=== PATIENT | male | born 1935 | race Caucasian/White ===

== ENCOUNTER → 2016-03-31 | Outpatient (CLI) | payer MEDICARE, BC, OTHER ==
[~2016-03-31] MED LIST: EDOX1TAB5 PO; LEVE250T5 PO; OCUV PO; PRIN10TA PO; PROS5TAB2 PO; SIMV10 PO; TAB-TAB PO
[2016-03-31 13:48] LABS: AUTOMATED NEUTROPHIL # 4.1 TH/MM3 (1.8-7.7); BASOPHIL % 0.5 % (0.0-2.0); EOSINOPHIL # 0.1 TH/MM3 (0-0.4); EOSINOPHIL % 2.6 % (0.0-4.0); HEMATOCRIT 31.4 % (39.0-51.0); HEMO FLAGS DIFF FINAL; LYMPH % 11.6 % (9.0-44.0); LYMPHOCYTE # 0.6 TH/MM3 (1.0-4.8); MEAN CELL VOLUME 87.7 FL (80.0-100.0); MEAN CORPUSCULAR HEMOGLOBIN 30.3 PG (27.0-34.0); MEAN CORPUSCULAR HGB CONC 34.6 % (32.0-36.0); MONO % 7.7 % (0.0-8.0); NEUT % 77.6 % (16.0-70.0); PLATELET COUNT 121 TH/MM3 (150-450); RED BLOOD COUNT 3.58 MIL/MM3 (4.50-5.90); RED CELL DISTRIBUTION WIDTH 14.9 % (11.6-17.2); WHITE BLOOD COUNT 5.3 TH/MM3 (4.0-11.0)
[2016-03-31 13:57] LABS: ANION GAP 8 MEQ/L (5-15); AST (GOT) 18 U/L (15-37); BICARBONATE 26.2 MEQ/L (21.0-32.0); BLOOD UREA NITROGEN 27 MG/DL (7-18); CHLORIDE 107 MEQ/L (98-107); POTASSIUM 3.9 MEQ/L (3.5-5.1); SODIUM (NA) 141 MEQ/L (136-145)
[2016-03-31 14:13] LABS: ALKALINE PHOSPHATASE 71 U/L (45-117); ALT (GPT) 18 U/L (12-78); GLOMERULAR FILTRATION RATE 53 ML/MIN (>89); GLUCOSE,FASTING 107 MG/DL (74-99); TOTAL BILIRUBIN ADULT 0.9 MG/DL (0.2-1.0)
== END ==
LOC: PLAB 09:27
PROVIDERS: ATTEND Family Medicine
DX: K92.2 Gastrointestinal hemorrhage, unspecified (principal)
CPT/HCPCS: 36415; 80053; 84443; 85025

== ENCOUNTER 2016-10-04 15:10 | Inpatient (IN) | payer MEDICARE, BC, OTHER ==
[2016-10-04] VITALS (17 sets, daily range): BP systolic 57–145; BP diastolic 35–98; PULSE 86–114; RESP 14–25; TEMP 97.2–98.7; O2SAT 95–100
[2016-10-04 15:59] LABS: APTT (PATIENT) 34.4 SEC (24.3-30.1); INTERNATIONAL NORMALIZED RATIO 1.2 RATIO; PROTHROMBIN TIME - PATIENT 13.4 SEC (9.8-11.6)
--- NOTE | 2016-10-04 16:15 | PD ---
HPI Chief Complaint: Code Blue Time Seen by Provider: 15:22 Travel History International Travel<30 days: No Contact w/Intl Traveler<30days: No Traveled to known affect area: No History of Present Illness HPI 81yo M with PMH of sinus cancer s/p radiation therapy, CVA presents to the ED s/ p PEA arrest. Pt's heard a sound in the bathroom and found pt on the bathroom floor unresponsive. Pt called [facility] and when they arrived pt was pulseless in PEA arrest and ACLS was started. ROSC was obtained after 1 epinephrine. Pt was intubated in the field by [facility]. No signs of trauma on the patient. He was hypotensive even after 1 liter of NS IVF. I ordered another 2 liters of NS IVF and started pt on epinephrine drip. Pt has a port in right chest for possible chemo. Dr. Mckenzie Chavarria is his oncologist. PFSH Past Medical History Hx Anticoagulant Therapy: Yes (SAVAYSA) Cancer: Yes (PROSTATE (CHEMO), MELANOMA (FACE)) Cardiovascular Problems: Yes (MS) Chemotherapy: Yes (prostate, skin melanoma) Cerebrovascular Accident: Yes Diabetes: Yes (BORDERLINE) Patient Takes Glucophage: No (unknown) Diminished Hearing: No Endocrine: Yes Genitourinary: No Hepatitis: No Hiatal Hernia: No Hypertension: Yes Immune Disorder: No Musculoskeletal: No Neurologic: Yes (STROKE (02/17/15)) Psychiatric: No Reproductive: No Respiratory: Yes (SLEEP APNEA/ NO CPAP) Myocardial Infarction: Yes (1995) Radiation Therapy: Yes (SEEDS; finished in february) Sickle Cell Disease: Yes Thyroid Disease: No Past Surgical History Abdominal Surgery: Yes (cholecystectomy) AICD: No Cardiac Surgery: No Cholecystectomy: Yes Ear Surgery: No Endocrine Surgery: No Eye Surgery: Yes (MELIA. CATARACT EXTRACT) Genitourinary Surgery: Yes (TURP) Gynecologic Surgery: No Joint Replacement: No Oral Surgery: No Pacemaker: No Thoracic Surgery: No Other Surgery: Yes (MELANOMA REMOVED FROM FACE) Social History Alcohol Use: Yes (RARELY) Tobacco Use: No Substance Use: No Allergies-Medications (Allergen,Severity, Reaction): Coded Allergies: Penicillin (Verified Allergy, Severe, TONGUE SWELLING, GENERALIZED HIVES, 10/04/16) Reported Meds & Prescriptions Reported Meds & Active Scripts Active Active Prescriptions or Reported Medications Unobtainable Review of Systems ROS Limitations: Unresponsive Physical Exam Narrative GENERAL: 81yo M unresponsive. SKIN: Focused skin assessment warm/dry. HEAD: Atraumatic. Normocephalic. EYES: Pupils equal and round at 3mm and reactive to light bilaterally. No scleral icterus. No injection or drainage. ENT: No nasal bleeding or discharge. Mucous membranes pink and moist. NECK: Trachea midline. No JVD. CARDIOVASCULAR: Regular rate and rhythm. No murmur appreciated. RESPIRATORY: Intubated. GASTROINTESTINAL: Abdomen soft, +Mass palpated in right abdomen. MUSCULOSKELETAL: No obvious deformities. No clubbing. No cyanosis. No edema. NEUROLOGICAL: Unresponsive. Data Data Last Documented VS Vital Signs Date Time Temp Pulse Resp B/P Pulse Ox O2 Delivery O2 Flow Rate FiO2 10/04/16 17:11 112 86/52 100 10/04/16 17:04 50 10/04/16 16:23 Ventilator 10/04/16 15:58 25 10/04/16 15:23 97.2 Orders Chest, Single Ap (10/04/16 ) Complete Blood Count With Diff (10/04/16 15:22) Basic Metabolic Panel (Bmp) (10/04/16 15:22) Prothrombin Time / Inr (Pt) (10/04/16 15:22) Act Partial Throm Time (Ptt) (10/04/16 15:22) Troponin I (10/04/16 15:22) Ckmb (Isoenzyme) Profile (10/04/16 15:22) Type And Screen (10/04/16 15:22) Lactic Acid Sepsis Protocol (10/04/16 15:22) Blood Culture (10/04/16 15:22) B-Type Natriuretic Peptide (10/04/16 15:22) Epinephrine (1:1000) Inj (Adrenalin (1:1 (10/04/16 17:30) Ct Brain W/O Iv Contrast(Rout) (10/04/16 ) Ed Poc Ultrasound (10/04/16 ) Norepinephrine-Dextrose Drip (Levophed-D (10/04/16 16:30) Terbutaline Inj (Brethine Inj) (10/04/16 16:30) Electrocardiogram (10/04/16 15:18) Urinalysis - C+S If Indicated (10/04/16 16:36) Ct Thorax/ Chest Wo Iv Contras (10/04/16 ) Ct Abd/Pel W/O Iv Contrast (10/04/16 ) Phenylephrine Inj (Neosynephrine Inj) (10/04/16 17:45) Terbutaline Inj (Brethine Inj) (10/04/16 16:45) Admit To Inpatient (10/04/16 ) Code Status (10/04/16 16:41) Vital Signs (Adult) JOHANNY.Q1H (10/04/16 16:41) Activity Bed Rest (10/04/16 16:41) Elevate Head Of Bed (10/04/16 16:41) Neuro Checks . ORDERED (10/04/16 16:41) Pantoprazole Inj (Protonix Inj) (10/04/16 17:00) Albuterol-Ipratropium Neb (Duoneb Neb) (10/04/16 20:00) Complete Blood Count With Diff (10/05/16 04:00) Comprehensive Metabolic Panel (10/05/16 04:00) Consult Cardiology (10/04/16 ) Consult Nephrology (10/04/16 ) Foundry Superintendant / Telemetry JOHANNY.Q8H (10/04/16 16:41) Scd Bilateral/Knee High JOHANNY.BID (10/04/16 16:41) ^ Initiate Protocol (10/04/16 16:41) Instruction (10/04/16 16:41) [facility] Nursing Information (10/04/16 16:45) Chlorhexidine 2% Cloth (Chlorhexidine 2% (10/05/16 04:00) Chlorhexidine 2% Cloth (Chlorhexidine 2% (10/04/16 16:45) Mrsa Pcr Surveillance (10/04/16 16:41) Docusate Sodium-Senna (Nena-Colace) (10/04/16 21:00) Magnesium Hydroxide Liq (Milk Of Magnesi (10/04/16 16:45) Sennosides (Senokot) (10/04/16 16:45) Bisacodyl Supp (Dulcolax Supp) (10/04/16 16:45) Lactulose Liq (Lactulose Liq) (10/04/16 16:45) Inpatient Certification (10/04/16 ) Arterial Blood Gas (Abg) (10/04/16 16:33) Lactic Acid (10/04/16 21:00) Troponin I (10/04/16 21:00) Blood Glucose Goal (Criteria) (10/04/16 16:44) Hypoglycemia 70 Mg/Dl Or < (10/04/16 16:44) Notify Dr: Other (10/04/16 16:44) Dextrose 50% In Ferny (Vial) Inj (D50w (Vi (10/04/16 16:45) Glucagon Inj (Glucagon Inj) (10/04/16 16:45) Insulin Human Reg Supp Scale (Novolin R (10/04/16 17:00) Hydrocortisone Inj (Solucortef Inj) (10/04/16 17:00) Water Sterile For I... W/Sodium Bicarbon (10/04/16 18:00) Neurological Rass Scale Q30MX2,Q2HX4,Q4H (10/04/16 16:48) Fentanyl Drip (Fentanyl Drip) (10/04/16 17:00) Neurological Rass Scale JOHANNY.Q2H.E (10/04/16 16:49) Elevate Head Of Bed (10/04/16 16:49) Chlorhexidine 0.12% Liq (Peridex 0.12% L (10/04/16 20:00) Ventilator Weaning Readiness JOHANNY.DAILY@0800 (10/04/16 16:49) Sodium Bicarbonate 8.4% Inj (Sodium Bica (10/04/16 17:00) Sodium Chlor 0.9% 1000 Ml Inj (Ns 1000 M (10/04/16 17:00) (Hub Use Only)Inp Phy Cons/Ref (10/04/16 ) Ventilation & Perfusion Scan (10/04/16 ) Urinary Catheter Management JOHANNY.Q8H (10/04/16 17:07) Admit Order (Ed Use Only) (10/04/16 17:09) Basic Metabolic Panel (Bmp) (10/04/16 21:00) Labs Laboratory Tests Test 10/04/16 10/04/16 10/04/16 10/04/16 14:45 14:55 16:33 16:40 Lactic Acid Level 5.9 mmol/L Prothrombin Time 13.4 SEC Prothromb Time International 1.2 RATIO Ratio Activated Partial 34.4 SEC Thromboplast Time Sodium Level 146 MEQ/L Potassium Level 4.7 MEQ/L Chloride Level 112 MEQ/L Carbon Dioxide Level 18.3 MEQ/L Anion Gap 16 MEQ/L Blood Urea Nitrogen 76 MG/DL Creatinine 6.63 MG/DL Estimat Glomerular Filtration 8 ML/MIN Rate Random Glucose 168 MG/DL Calcium Level 8.0 MG/DL Total Creatine Kinase 33 U/L Troponin I 0.16 NG/ML B-Type Natriuretic Peptide 313 PG/ML Blood Type O POSITIVE Antibody Screen NEGATIVE Blood Gas Puncture Site RT RADIAL Blood Gas Patient Temperature 98.6 Blood Gas HCO3 14 mmol/L Blood Gas Base Excess -11.5 mmol/L Blood Gas Oxygen Saturation 98 % Arterial Blood pH 7.29 Arterial Blood Partial 30 mmHg Pressure CO2 Arterial Blood Partial 451 mmHG Pressure O2 Arterial Blood Oxygen Content 12.2 Vol % Arterial Blood 0.0 % Carboxyhemoglobin Arterial Blood Methemoglobin 0.3 % Blood Gas Hemoglobin 8.0 G/DL Oxygen Delivery Device VENTILATOR Blood Gas Ventilator Setting AC,16,500,PEEP5 Blood Gas Inspired Oxygen 100 % White Blood Count 17.0 TH/MM3 Red Blood Count 2.63 MIL/MM3 Hemoglobin 8.2 GM/DL Hematocrit 24.9 % Mean Corpuscular Volume 94.4 FL Mean Corpuscular Hemoglobin 31.3 PG Mean Corpuscular Hemoglobin 33.1 % Concent Red Cell Distribution Width 14.9 % Platelet Count 99 TH/MM3 Mean Platelet Volume 9.8 FL Neutrophils (%) (Auto) 86.1 % Lymphocytes (%) (Auto) 11.4 % Monocytes (%) (Auto) 2.1 % Eosinophils (%) (Auto) 0.3 % Basophils (%) (Auto) 0.1 % Neutrophils # (Auto) 14.6 TH/MM3 Lymphocytes # (Auto) 1.9 TH/MM3 Monocytes # (Auto) 0.4 TH/MM3 Eosinophils # (Auto) 0.0 TH/MM3 Basophils # (Auto) 0.0 TH/MM3 CBC Comment AUTO DIFF Differential Total Cells 100 Counted Neutrophils % (Manual) 86 % Band Neutrophils % 3 % Lymphocytes % 9 % Neutrophils # (Manual) 15.5 TH/MM3 Metamyelocytes 2 % Differential Comment FINAL DIFF MANUAL Platelet Estimate LOW Platelet Morphology Comment NORMAL Ovalocytes 1+ MDM Medical Decision Making Medical Screen Exam Complete: Yes Emergency Medical Condition: Yes Interpretation(s) EKG: Afib at 107bpm. RBBB. ST depression diffusely. Differential Diagnosis Massive PE vs. Bihemispheric CVA vs. ICH vs. cardiac tamponade Narrative Course 81yo M here s/p PEA arrest. Pt was hypotensive after 2 liters of NS IVF and placed on epinephrine drip. Pt is still hypotensive with epinephrine going at 75ml/hr with BP of 74/46 so Norepinephrine drip ordered as well. Discussed with speech writer Dr. Zhou who recommended switching to neosynephrine since pt is tachycardic. Troponin elevated at 0.16. Discussed with mover helper Dr. Feldman who said he will not be taking the pt to cardiac cath at this time. Will consult. Pt also found to be in acute kidney injury with BUN/creatinine of 76/6.63 compared to 27/1.31. Lactic acid is elevated at 5.9, expected from PEA arrest. K is normal at 4.7. CXR showed mild cardiomegaly. No focal infiltrate. Pt will go to CT scan before going upstairs to ICU. CTa/p showed multiple right sided rib fractures with small to moderate pneumothorax. CT chest also showed multiple right anterior rib fractures. Pt is already in the ICU and chest tube placed by speech writer. CT brain showed no acute findings. Critical Care Narrative Aggregate critical care time was 60 minutes. Time to perform other separately billable procedures was not included in the critical care time. My time did not include minutes spent treating any other patients simultaneously or on activities that did not directly contribute to the patient's treatment. The services I provided to this patient were to treat and/or prevent clinically significant deterioration that could result in: cardiovascular collapse or . I provided critical care services requiring my management, as noted below: Chart data review, documentation time, medication orders and management, vital sign assessments/reviewing monitor data, ordering and reviewing lab tests, ordering and interpreting/reviewing x-rays and diagnostic studies, care of the patient and discussion of the patient with the admitting physicians. Diagnosis Primary Impression: Cardiac arrest Admitting Information Admitting Physician Requests: Admit Scripts Unable to Obtain Active Prescriptions or Reported Meds Jenny Steward DO Oct 04, 2016 16:15 Jenny Steward DO Oct 04, 2016 16:15
--- NOTE | 2016-10-04 16:15 | RADRPT ---
EXAM DATE/TIME: 10/04/2016 15:35 [facility] COMPARISON: No previous studies available for comparison. INDICATIONS : Post cardiac arrest. MEDICAL HISTORY : Hypertension. Diabetes mellitus type II. Cardiovascular disease. CVA, prostate cancer, melanoma SURGICAL HISTORY : Cholecystectomy. ENCOUNTER: Initial ACUITY: 1 day PAIN SCORE: Non-responsive. LOCATION: Bilateral chest FINDINGS: A single view of the chest demonstrates endotracheal tube in satisfactory position. Nasogastric tube enters stomach. Right [id number] no cavoatrial junction. Cardiomegaly. No focal infiltrate or sign ificant effusion. CONCLUSION: 1. Port apparatus in satisfactory position. Mild cardiomegaly. No focal infiltrate. Yemi Resendiz MD on October 04, 2016 at 16:11 Board Certified Radiologist. This report was verified electronically.
[2016-10-04 16:22] LABS: BICARBONATE 18.3 MEQ/L (21.0-32.0); POTASSIUM 4.7 MEQ/L (3.5-5.1)
[2016-10-04] MEDS ORDERED: NOREPINEPHRINE-DEXTROSE DRIP 250 ML IV SCH (16:30)
[2016-10-04] MEDS ORDERED: TERBUTALINE INJ 1 MG/ML AMP SQ PRN ×3 (16:30→17:30)
[2016-10-04 16:44] LABS: BLOOD GAS BASE EXCESS -11.5 mmol/L (-2-2); BLOOD GAS HCO3 14 mmol/L (22-26); BLOOD GAS METHEMOGLOBIN 0.3 % (0-2); BLOOD GAS O2 HGB SATURATION 98 % (90-100); BLOOD GAS OXYGEN CONTENT 12.2 Vol % (12.0-20.0); BLOOD GAS PCO2 30 mmHg (38-42); BLOOD GAS PO2 451 mmHG (61-120); CRITICAL VALUE YES; FIO2 100 %; OXYGEN DEVICE VENTILATOR; TEMP CORR TO 98.6
[2016-10-04 16:45] LABS: DRAW SITE RT RADIAL; NUMBER OF ARTERIAL PUNCTURES 1; STAT YES; ULNAR PULSE PRESENT
[2016-10-04] MEDS ORDERED: CHLORHEXIDINE GLUCONATE 2 % 1 PACK (2 CLOTHS) TOP PRN (16:45)
[2016-10-04] MEDS ORDERED: BISACODYL 10 MG SUPP RECTAL PRN (16:45)
[2016-10-04] MEDS ORDERED: SENNOSIDES 8.6 MG TAB PO PRN (16:45)
[2016-10-04] MEDS ORDERED: DEXTROSE 50% IN WATER 50 ML VIAL(D50) IV PRN (16:45)
[2016-10-04] MEDS ORDERED: MAGNESIUM HYDROXIDE SUSP 30 ML CUP PO PRN (16:45)
[2016-10-04] MEDS ORDERED: MISCELLANEOUS NURSING INFORMATION XX SCH (16:45)
[2016-10-04] MEDS ORDERED: GLUCAGON 1 MG/ML VIAL OTHER PRN (16:45)
[2016-10-04] MEDS ORDERED: LACTULOSE SYRUP 20 GM/30 ML CUP PO PRN (16:45)
[2016-10-04] MEDS ORDERED: SODIUM CHLOR 0.9% 1000 ML INJ 1,000 ML IV ONE ×2 (17:00→17:45)
[2016-10-04] MEDS ORDERED: SODIUM BICARBONATE 8.4% INJ 50 MEQ/50 ML SYR IV PUSH ONE ×2 (17:00→17:30)
[2016-10-04] MEDS ORDERED: fentaNYL DRIP 250 ML IV SCH (17:00)
[2016-10-04 17:05] LABS: AUTOMATED NEUTROPHIL # 14.6 TH/MM3 (1.8-7.7); BASOPHIL % 0.1 % (0.0-2.0); EOSINOPHIL % 0.3 % (0.0-4.0); HEMATOCRIT 24.9 % (39.0-51.0); LYMPH % 11.4 % (9.0-44.0); LYMPHOCYTE # 1.9 TH/MM3 (1.0-4.8); MEAN CELL VOLUME 94.4 FL (80.0-100.0); MEAN CORPUSCULAR HEMOGLOBIN 31.3 PG (27.0-34.0); MEAN CORPUSCULAR HGB CONC 33.1 % (32.0-36.0); MONO % 2.1 % (0.0-8.0); NEUT % 86.1 % (16.0-70.0); PLATELET COUNT 99 TH/MM3 (150-450); RED BLOOD COUNT 2.63 MIL/MM3 (4.50-5.90); RED CELL DISTRIBUTION WIDTH 14.9 % (11.6-17.2)
[2016-10-04 17:15] LABS: HEMO FLAGS AUTO DIFF
[2016-10-04] MEDS ORDERED: EPINEPHrine (1:1000) INJ 2 MG in DEXTROSE 5% IN WATER INJ 248 ML IV SCH ×2 (17:30)
[2016-10-04] MEDS ORDERED: LIDOCAINE HCL 2% 100 MG/5 ML SYRINGE ONE (17:34)
[2016-10-04] MEDS ORDERED: EPINEPHrine HCL (1:10,000) 1 MG/10 ML SYRINGE ONE (17:34)
[2016-10-04] MEDS ORDERED: ATROPINE SULFATE 1 MG/10 ML SYRINGE ONE (17:34)
[2016-10-04 17:43] LABS: LACTIC ACID GHOST NOT REPORTABLE
[2016-10-04] MEDS ORDERED: PHENYLEPHRINE INJ 40 MG in DEXTROSE 5% IN WATE 500 ML INJ 496 ML IV SCH ×4 (17:45→18:30)
--- NOTE | 2016-10-04 17:55 | RADRPT ---
EXAM DATE/TIME: 10/04/2016 17:40 [facility] COMPARISON: No previous studies available for comparison. INDICATIONS : Altered mental status, post cardiac arrest. RADIATION DOSE: 56.35 CTDIvol (mGy) MEDICAL HISTORY : Cardiovascular disease. Hypertension. Sickle Cell disease.prostae cancer SURGICAL HISTORY : Non-responsive. ENCOUNTER: Initial ACUITY: 1 day PAIN SCALE: Non-responsive LOCATION: cranial TECHNIQUE: Multiple contiguous axial images were obtained of the head. Using automated exposure control and adj ustment of the mA and/or kV according to patient size, radiation dose was kept as low as reasonably a chievable to obtain optimal diagnostic quality images. DICOM format image data is available electro nically for review and comparison. FINDINGS: CEREBRUM: The ventricles are normal for age. No evidence of midline shift, mass lesion, hemorrhage or acute in farction. No extra-axial fluid collections are seen. POSTERIOR FOSSA: The cerebellum and brainstem are intact. The 4th ventricle is midline. The cerebellopontine angle i s unremarkable. EXTRACRANIAL: The visualized portion of the orbits is intact. SKULL: The calvaria is intact. No evidence of skull fracture. CONCLUSION: 1. No acute findings. Remote lacunar infarcts again noted bilaterally. Postoperative sinus surgery. Yemi Resendiz MD on October 04, 2016 at 17:52 Board Certified Radiologist. This report was verified electronically.
--- NOTE | 2016-10-04 18:20 | RADRPT ---
EXAM DATE/TIME: 10/04/2016 17:43 [facility] COMPARISON: No previous studies available for comparison. INDICATIONS : Post cardiac arrest. RADIATION DOSE: 5.88 CTDIvol (mGy) ; Combined studies - Thorax/Abdomen/Pelvis MEDICAL HISTORY : Cardiovascular disease. Hypertension. Sickle Cell disease. prostate cancer SURGICAL HISTORY : Non-responsive. ENCOUNTER: Initial ACUITY: 1 day PAIN SCALE: Non-responsive LOCATION: chest TECHNIQUE: Volumetric scanning of the chest was performed. Using automated exposure control and adjustment of t he mA and/or kV according to patient size, radiation dose was kept as low as reasonably achievable to obtain optimal diagnostic quality images. DICOM format image data is available electronically for r eview and comparison. Follow-up recommendations for incidentally detected pulmonary nodules are based at a minimum on nodul e size and patient risk factors according to Fleischner Society Guidelines. FINDINGS: There are multiple right anterior rib fractures. There is a small to moderate right pneumothorax. The re is basilar dependent atelectasis in the lungs. Endotracheal tube satisfactory position. NG in stom ach. Heart is enlarged. There are moderate to severe coronary calcifications. Nasogastric tube. tip in the stomach. CONCLUSION: 1. Multiple right anterior rib fractures with small to moderate right pneumothorax. Endotracheal tube , nasogastric tube and right Yspwuw-j-Aaep in satisfactory position. 2. Moderate to severe coronary calcifications. 3. Upper abdomen reveals some mild hydronephrosis. Mild anasarca. Yemi Resendiz MD on October 04, 2016 at 18:13 Board Certified Radiologist. This report was verified electronically.
--- NOTE | 2016-10-04 18:22 | RADRPT ---
EXAM DATE/TIME: 10/04/2016 17:45 [facility] COMPARISON: No previous studies available for comparison. INDICATIONS : Post cardiac arrest. ORAL CONTRAST: No oral contrast ingested. RADIATION DOSE: 5.88 CTDIvol (mGy) ; Combined studies - Thorax/Abdomen/Pelvis MEDICAL HISTORY : Cardiovascular disease. Hypertension. Sickle Cell disease.prostate cancer SURGICAL HISTORY : Non-responsive. ENCOUNTER: Initial ACUITY: 1 day PAIN SCALE: Non-responsive LOCATION: abdomen TECHNIQUE: Volumetric scanning of the abdomen and pelvis was performed. Using automated exposure control and ad justment of the mA and/or kV according to patient size, radiation dose was kept as low as reasonably achievable to obtain optimal diagnostic quality images. DICOM format image data is available electro nically for review and comparison. FINDINGS: Multiple right-sided rib fractures present with small to moderate right pneumothorax. Dependent atele ctasis at the lung bases. NG tube in stomach. Liver, spleen, adrenals and pancreas unremarkable. Mild bilateral hydronephrosis. Distended bladder. Radiation seed implants in the prostatic bed. There is anasarca. No free air. CONCLUSION: 1. Multiple right-sided rib fractures with small to moderate right pneumothorax. 2. Hydronephrosis with distended bladder likely bladder outlet obstruction. 3. Anasarca. Yemi Resendiz MD on October 04, 2016 at 18:18 Board Certified Radiologist. This report was verified electronically.
[2016-10-04 18:25] LABS: BANDS 3 % (0-6); METAMYELOCYTES 2 % (0-1); NEUTROPHIL # MANUAL DIFF 15.5 TH/MM3 (1.8-7.7); POLYS (SEG NEUTROPHILS) 86 % (16-70); SCAN/DIFF FINAL DIFF MANUAL; WBC DIFF SAMPLE 100
[2016-10-04 18:26] LABS: PLATELET ESTIMATE SMEAR LOW (NORMAL); PLATELET MORPHOLOGY NORMAL (NORMAL)
[2016-10-04 18:27] LABS: OVALOCYTES 1+ (NORMAL)
[2016-10-04] MEDS ORDERED: LIDOCAINE HCL 1% 50 ML VIAL ONE (18:43)
[2016-10-04] MEDS ORDERED: LIDOCAINE 1%/EPINEPHrine 1:100,000 SOLN 30 ML VIAL ONE (18:48)
--- NOTE | 2016-10-04 19:16 | PD.PROCEDR ---
Procedure Note Procedure Date of procedure: 10/04/2016 Procedure: Right #10 Croatian pigtail chest tube placement Indication: Right pneumothorax Details of procedure: Informed consent was not obtained and considered emergent due to hemodynamic instability. The patient was laid supine. The lateral chest wall was cleaned with ChloraPrep twice. Regional sterile drapes were applied. 1% lidocaine was used for local anesthesia and injected into the subcutaneous and deep muscle tissues. A finder needle was inserted appeared to the rib and a maynard of air was obtained. Guidewire was placed through the insertion needle. A 0.5 cm skin incision was made with a scalpel blade A size 10 Croatian chest tube was inserted into the pleural cavity. 2-0 silk was used to close the wound and to secure the chest tube. A sterile Vaseline gauze dressing was applied. The chest tube was connected to a Pleur-evac drainage system. There was a not a persistent air leak. There was minimal output from the chest tube. Estimated blood loss: 5 cc Complications: None. Stat chest x-ray pending at time of dictation. Rich Paul MD Oct 04, 2016 19:16
--- NOTE | 2016-10-04 19:47 | RADRPT ---
EXAM DATE/TIME: 10/04/2016 19:12 [facility] COMPARISON: CHEST SINGLE AP, October 04, 2016, 15:35. INDICATIONS : Post right chest tube placement. MEDICAL HISTORY : Hypertension. Diabetes mellitus type II. Cardiovascular disease. CVA, SURGICAL HISTORY : Cholecystectomy. ENCOUNTER: Subsequent ACUITY: 1 day PAIN SCORE: Non-responsive. LOCATION: Bilateral chest FINDINGS: Small caliber right chest tube present without visible pneumothorax. Endotracheal tube in satisfactor y position. Nasogastric tube enters stomach. Bljbqw-g-Epkz in superior vena cava. Lung bases and depe ndent atelectasis. CONCLUSION: 1. Small caliber right chest tube without pneumothorax. Yemi Resendiz MD on October 04, 2016 at 19:45 Board Certified Radiologist. This report was verified electronically.
[2016-10-04] MEDS: CHLORHEXIDINE 0.12% (ORAL KIT) 15 ML CUP MT SCH (20:00)
--- NOTE | 2016-10-04 20:00 | MH ---
cc: DINA GENTILE M.D. DATE OF ADMISSION: 10/04/2016 DATE OF : 1935 HISTORY OF PRESENT ILLNESS: The patient is an 81 year-old male with a past medical history of prostate cancer, melanoma of the skin, CVA, hypertension, hyperlipidemia, who presented to [facility] ED status post PEA arrest. The patient's stated that she heard a sound in the bathroom and she found him on the floor unresponsive after he hit his head. She called [facility] and when they arrived the patient was pulseless and in PEA arrest. ACLS protocol was initiated. After one round of epi, the patient regained spontaneous circulation. He was intubated in the field by [facility]. Also he was found to be hypotensive and he was given one liter bolus of normal saline by [facility] and the patient received additional two liters of IV fluids in the ER and started on epinephrine drip. He has a port in the right chest for chemotherapy and is being followed by Dr. Rincon, oncologist, from [facility]. When he arrived to the ER, he was tachycardiac with heart rate of 112, hypotensive, with a systolic blood pressure 60s to 70s. His laboratory data showed acute renal failure with a BUN of 76, creatinine 6.63, lactic acidemia with lactic acid level of 5.9. ABG post intubation showed severe metabolic acidosis with a pH of 7.29, CO2 30, pAO2 451, bicarb at 14, saturation 98% on assist control ventilation, rate of 16, tidal volume 500, PEEP of 5, 100% FIO2. His INR is 1.2 with a PT 13.4. EKG in the ER showed atrial fibrillation with rapid ventricular response at a rate of 107 beats per minute, right bundle-branch block, and ST depression. Dr. Feldman from cardiology service was notified and no plans for immediate cardiac catheterization at this time. Chest x-ray showed mild cardiomegaly otherwise no focal infiltrates. The rest of the ED workup is in progress. His CBC is pending. In addition, the patient is scheduled to undergo CT scan of the brain, CT of the abdomen and pelvis and CT thorax without contrast. He has a troponin measured at 0.16 with total CK of 33 and BMP of 313. PAST MEDICAL HISTORY: Significant for: 1. Melanoma. 2. Prostate cancer. 3. Coronary artery disease. 4. Hypertension. 5. Hyperlipidemia. 6. CVA. 7. History of sleep apnea. PAST SURGICAL HISTORY: 1. Previous cholecystectomy. 2. Previous cataract surgery. 3. Previous TURP. 4. Previous melanoma removed from the face. ALLERGIES PENICILLIN. REPORTED MEDICATIONS: Unknown. FAMILY HISTORY: Unknown. REVIEW OF SYSTEMS: Unobtainable. PHYSICAL EXAMINATION: The patient is an 81 year-old male, status post PEA arrest. VITAL SIGNS: Temperature 97.2, pulse 107, blood pressure 86/53 with a MAP of 63, saturation of 100%. Vent setting assist control, rate of 14, tidal volume of 500, PEEP of 5, FIO2 50%. HEENT: Atraumatic, normocephalic. Pupils equal, round and reactive to light and accommodation. Extraocular muscles intact. Conjunctivae pink. Nonicteric sclera. Oral mucosa within normal limits. NECK: Supple. No JVD, adenopathy or thyromegaly. Trachea midline. Orally intubated. CARDIOVASCULAR: Tachycardiac. Normal S1-S2. No murmurs, rubs, or gallops noted. PULMONARY: Bilateral equal entry. No rales or wheezing. ABDOMEN: Soft, nontender. No distension. Positive bowel sounds. EXTREMITIES: No cyanosis or clubbing, 2+ edema. NEUROLOGIC: Intubated. LABORATORY DATA: Sodium 146, potassium 4.7, chloride 112, CO2 18, BUN 76, creatinine 6.63, glucose 168, lactic acid 5.9, troponin 0.16 with total CK 33, BNP 313. INR 1.2. PT 13.4, PTT 34.4, ABG showed severe metabolic acidosis with pH of 7.29, CO2 30, PAO2 461, bicarb 14, sats 98%. RADIOLOGIC STUDIES: Chest x-ray showed port apparatus in position, mild cardiomegaly. No focal infiltrate. EKG showed A-fib with rate of 107 beats per minute, right bundle-branch block and ST depression. IMPRESSION 1. Status post cardiopulmonary PEA arrest. 2. Lactic acidemia 3. Acute renal failure. 4. Respiratory failure. 5. Mild elevation in troponins. 6. Anion gap metabolic acidosis secondary to lactic acidemia and renal failure. 7. History of CVA. 8. History of coronary artery disease. 9. History of hypertension 10. Hyperlipidemia. 11. History of prostate cancer. 12. History of melanoma. RECOMMENDATIONS Place on fentanyl infusion for sedation and vent synchrony if needed. Monitor neuro status closely. Patient is for CT scan of the brain without contrast to rule out acute intracranial process. Patient is status post fall. Patient is not a candidate for hypothermia protocol due to hemodynamic instability. Continue with vent support and maintain sats above 92%. Bronchodilator in the form of DuoNeb q6. Will initiate ICU vent bundle. Chest x-ray in the ER showed clear lungs, no focal infiltrate. Will check V/Q scan of the chest to rule out pulmonary embolism. In addition, the patient is scheduled to undergo CT scan of the chest ordered by ED. Pressors titrate to maintain MAP greater than 65 mmHg. Serial lactic acid monitoring. Will switch from epinephrine to Juan-Synephrine. Monitor cardiac enzymes with troponins and will obtain a 2-D echo to evaluate LV function to rule out regional wall motion abnormalities. Cardiology service, Dr. Feldman, was notified by ED. No plan for immediate cardiac catheterization. Monitor renal function I&O and avoid for toxins. Will insert the Sandoval. Will give 2 amps IV push of sodium bicarb and place on sterile water with 2 amps of bicarb at 150 mL an hour. Repeat BMP and lactic acid level in [address] on Protonix 40 mg IV daily for GI prophylaxis and start tube feeds within the next 24 hours if remains intubated. Monitor for signs of infection which include fever and WBC. Follow up on blood cultures which was performed in the ER. Check urinalysis with culture if indicated and follow up on CBC. Place on stress dose steroids hydrocortisone 100 mg IV q8. The patient is for CT scan of the abdomen and pelvis without contrast. Monitor CBC. Place on sliding scale insulin with Accu-Chek q4 for glycemic control as the patient will be on IV steroids. GI prophylaxis with Protonix 40 mg daily and DVT prophylaxis with SCDs. Start chemical anticoagulation prophylaxis if the CT scan of the brain is negative for bleed. Will obtain a Doppler ultrasound bilateral lower extremity to rule out DVT. The patient is critically ill with respiratory failure, renal failure, shock, post cardiopulmonary arrest. I spoke to patient's family at the bed side, updated them on his condition and they expressed that they would like everything done for the patient. Right-sided port in place. We will place a heart line. Critical care time: 50 minutes excluding procedures. MD STEFANIA Veras /5:13 PM /7:27 PM M[facility] IMOGEN[facility]ASSETT HOSPITALSilvia
[2016-10-04] MEDS: PANTOPRAZOLE SODIUM 40 MG VIAL IV SCH (20:42)
[2016-10-04] MEDS: HYDROCORTISONE SOD SUCCINATE 100 MG VIAL IV PUSH SCH (20:43)
[2016-10-04] MEDS: DOCUSATE SODIUM 50 MG/SENNA 8.6 MG TAB PO SCH (21:00)
--- NOTE | 2016-10-04 21:09 | RADRPT ---
EXAM DATE/TIME: 10/04/2016 20:23 [facility] COMPARISON: No previous studies available for comparison. INDICATIONS : Bilateral leg edema. MEDICAL HISTORY : Hypertension. Carcinoma, prostate. Cerebrovascular accident. Myocardial infarction. Anticoagulant therapy. Sleep apnea. Diabetes. Sickle cell disease. Carcinoma, melanoma. SURGICAL HISTORY : Cholecystectomy. Bilateral cataract extract. TURP. Melanoma removed from face. ENCOUNTER: Initial ACUITY: 1 day PAIN SCORE: Non-responsive LOCATION: Bilateral legs. TECHNIQUE: Venous ultrasound of the left and right leg was performed from the inguinal ligament to the proximal calf. Real-time, color Doppler and spectral tracing, compression and augmentation techniques were us ed. FINDINGS: The examination is positive for deep venous thrombosis in the tibial veins bilaterally and in the lef t distal femoral vein at the bifurcation. Nonocclusive thrombus left superficial femoral vein. Right femoral and popliteal veins are patent. CONCLUSION: 1. Positive for deep venous thrombosis in the posterior tibial veins bilaterally and in the distal le ft femoral vein. Yemi Resendiz MD on October 04, 2016 at 21:07 Board Certified Radiologist. This report was verified electronically.
[2016-10-04 21:26] LABS: BICARBONATE 17.4 MEQ/L (21.0-32.0); POTASSIUM 4.4 MEQ/L (3.5-5.1)
[2016-10-04 21:43] LABS: BLOOD GAS BASE EXCESS -8.4 mmol/L (-2-2); BLOOD GAS CARBOXYHEMOGLOBIN 1.2 % (0-4); BLOOD GAS HCO3 16 mmol/L (22-26); BLOOD GAS METHEMOGLOBIN 1.5 % (0-2); BLOOD GAS O2 HGB SATURATION 96 % (90-100); BLOOD GAS PCO2 30 mmHg (38-42); BLOOD GAS PO2 149 mmHg (61-120); BLOOD GAS TOTAL HGB 8.7 G/DL (12.0-16.0); TEMP CORR TO 98.6
[2016-10-04 21:44] LABS: CRITICAL VALUE YES; DRAW SITE RT RADIAL; FIO2 40 %; NUMBER OF ARTERIAL PUNCTURES 1; OXYGEN DEVICE VENTILATOR; STAT NO; VENT SETTINGS 500/18/PEEP 5
[2016-10-04] MEDS: RESP: ALBUTEROL 2.5 MG/IPRATROPIUM 0.5 MG NEB (SCH) INH (21:59)
--- NOTE | 2016-10-04 23:15 | MB ---
cc: NADIA CHACON MD DATE OF CONSULTATION: 10/04/2016 REASON FOR CONSULTATION: Elevated creatinine and hyperkalemia. HISTORY OF PRESENT ILLNESS This is an 81-year-old male with a past medical history of prostate cancer, history of cerebrovascular accident, hypertension, hyperlipidemia, mild chronic kidney disease, history of melanoma of the skin, who was brought to the hospital post cardiac arrest. I was called to see the patient because of a very high BUN and creatinine and high potassium level. The patient is intubated and not able to give any history. Most of the history was taken from the patient's chart. The patient was brought to the hospital and the says that she heard a sound in the bathroom and found him on the floor unresponsive. She called [facility], and on arrival the patient was found pulseless and PEA activity. ACL protocol was initiated and the patient was intubated and he was transferred to [place]. The patient was found to be hypotensive and was given one liter bolus of normal saline and additional two liters of fluids and IV fluids and he was started on epinephrine drip. He has a port in the right chest for chemotherapy and is followed by an oncologist at [facility]. On arrival to the ER, it was found that he was tachycardiac and systolic blood pressure was 160s to 170s. The patient was resuscitated and transferred to the intensive care unit. I saw him in the intensive care unit when the grain buyer was putting the chest tube for pneumothorax. PAST MEDICAL HISTORY 1. Hypertension. 2. Hyperlipidemia. 3. Cerebrovascular accident. 4. History of prostate cancer. 5. Ischemic heart disease 6. Sleep apnea 7. Mild chronic kidney disease. PAST SURGICAL HISTORY 1. Cholecystectomy 2. Cataract surgery 3. TURP 4. Melanoma removal from the face. REVIEW OF SYSTEMS: Cannot be taken since the patient is intubated. SOCIAL HISTORY: The patient is . There is no further history available. FAMILY HISTORY: Not available. ALLERGIES PENICILLIN. MEDICATIONS Currently he is on following medications: 5. IV fluids. He is getting sodium bicarbonate at 150 mL an hour. 6. Pericolace one tablet b.i.d. 7. Protonix 40 milligrams IV daily. 8. DuoNeb nebulizer. 9. Regular insulin sliding scale. 10. Solu-Cortef 100 milligrams q8 hours. 11. Fentanyl as needed. 12. Megace as needed. 13. Dulcolax as needed. 14. Lactulose as needed. PHYSICAL EXAMINATION: On examination the patient is intubated and unresponsive. VITAL SIGNS: Temperature 97.2, pulse 102, oxygen saturation on 30% FIO2 is 98 to 99%. HEENT: Pupils are mid constricted. Nonicteric sclera, conjunctiva pale. Neck: Supple. JVD is slightly elevated. Lungs: The patient has bilateral air entry with scattered wheezing. Heart: S1-S2 irregular rhythm. Abdomen: Distended, soft. No tenderness. Extremities: He has 1+ edema. INVESTIGATIONS: WBC count is 74, hemoglobin 8.2, platelet count of 99, neutrophils 86.1%, sodium 144, potassium 4.4, chloride 112, bicarb 17.4, BUN 78, creatinine 5.98, lactic acid is 4.4, calcium 7.6, troponin is 2.85, BNP is 313, INR is 1.2, blood cultures pending. IMAGING STUDIES The patient has ultrasound of the lower extremities done and shows positive for deep vein thrombosis in the posterior tibia and in the distant left femoral vein. CT scan of the brain was done which shows no acute findings, there is remote lacunar infarct. Postoperative sinus changes. Chest x-ray was done which shows right chest tube without pneumothorax. CT scan of the abdomen and pelvis was done without IV contrast and shows small to moderate right pneumothorax, hydronephrosis with distended bladder likely bladder outlet obstruction, anasarca. CT scan of the chest was done and shows multiple right anterior rib fracture with small to moderate right pneumothorax, moderate to severe coronary calcification. ASSESSMENT/PLAN 1. Post cardiac arrest 2. Acute kidney injury with bladder outlet obstruction. 3. Metabolic acidosis 4. Hypotension and shock status. 5. Respiratory failure 6. Anemia. 7. History of cerebrovascular accident. 8. History of prostate cancer. The patient had cardiac arrest and had developed acute kidney injury also seems to have obstructive uropathy. Insertion of Sandoval catheter failed and he is currently has condom catheter, not passing much urine. Blood pressure is being supported. He has a chest tube. Most likely ATN is also playing a role in the acute kidney injury along with obstructive uropathy. At present will continue with sodium bicarb one unit and stabilizing the blood pressure. Urology has been consulted. Will need a small size Sandoval catheter. Will follow the urine output, the BUN and creatinine. Avoid nephrotoxins. Thank you for the consultation. I will follow the patient in the hospital. MD ARIANNA Marcus/RAMON /10:27 PM /10:43 PM
[2016-10-04] MEDS: INSULIN NovoLIN REGULAR SUPPLEMENTAL SCALE SQ SCH (23:51)
[2016-10-04] MEDS: SODIUM BICARBONATE 8.4% INJ 100 MEQ in WATER STERILE FOR INJ 850 ML IV SCH (23:52)
[2016-10-05] VITALS (13 sets, daily range): BP systolic 127–145; BP diastolic 78–95; PULSE 84–104; RESP 14–23; TEMP 97.7–100.3; O2SAT 94–98
[2016-10-05 00:05] LABS: HEMATOCRIT 29.2 % (39.0-51.0); MEAN CELL VOLUME 93.4 FL (80.0-100.0); MEAN CORPUSCULAR HEMOGLOBIN 31.8 PG (27.0-34.0); MEAN CORPUSCULAR HGB CONC 34.1 % (32.0-36.0); PLATELET COUNT 104 TH/MM3 (150-450); RED BLOOD COUNT 3.13 MIL/MM3 (4.50-5.90); RED CELL DISTRIBUTION WIDTH 14.6 % (11.6-17.2); REVIEW FLAG FINAL
[2016-10-05] MEDS: HEPARIN-D5W INJ 250 ML IV SCH ×2 (00:05→21:14)
[2016-10-05 00:15] LABS: APTT (PATIENT) 32.7 SEC (24.3-30.1); INTERNATIONAL NORMALIZED RATIO 1.2 RATIO
[2016-10-05] MEDS: RESP: ALBUTEROL 2.5 MG/IPRATROPIUM 0.5 MG NEB (SCH) INH ×5 (00:34→20:14)
[2016-10-05] MEDS: HYDROCORTISONE SOD SUCCINATE 100 MG VIAL IV PUSH SCH ×3 (02:26→16:48)
[2016-10-05] MEDS: INSULIN NovoLIN REGULAR SUPPLEMENTAL SCALE SQ SCH ×6 (02:27→21:00)
[2016-10-05] MEDS: SODIUM BICARBONATE 8.4% INJ 100 MEQ in WATER STERILE FOR INJ 850 ML IV SCH ×4 (02:29→20:31)
[2016-10-05] MEDS: CHLORHEXIDINE GLUCONATE 2 % 1 PACK (2 CLOTHS) TOP SCH (04:00)
[2016-10-05 05:58] LABS: AUTOMATED NEUTROPHIL # 13.2 TH/MM3 (1.8-7.7); BASOPHIL % 0.2 % (0.0-2.0); HEMATOCRIT 27.9 % (39.0-51.0); LYMPHOCYTE # 0.7 TH/MM3 (1.0-4.8); MEAN CORPUSCULAR HEMOGLOBIN 31.2 PG (27.0-34.0); MEAN CORPUSCULAR HGB CONC 33.2 % (32.0-36.0); MONO % 3.5 % (0.0-8.0); NEUT % 91.3 % (16.0-70.0); PLATELET COUNT 83 TH/MM3 (150-450); RED BLOOD COUNT 2.97 MIL/MM3 (4.50-5.90); RED CELL DISTRIBUTION WIDTH 14.6 % (11.6-17.2); WHITE BLOOD COUNT 14.5 TH/MM3 (4.0-11.0)
[2016-10-05 06:01] LABS: HEMO FLAGS AUTO DIFF
[2016-10-05 06:06] LABS: APTT (PATIENT) 67.7 SEC (24.3-30.1)
[2016-10-05 06:15] LABS: ANION GAP 15 MEQ/L (5-15); AST (GOT) 50 U/L (15-37); BICARBONATE 19.3 MEQ/L (21.0-32.0); BLOOD UREA NITROGEN 77 MG/DL (7-18); CHLORIDE 110 MEQ/L (98-107); GLOMERULAR FILTRATION RATE 10 ML/MIN (>89); POTASSIUM 4.2 MEQ/L (3.5-5.1); SODIUM (NA) 144 MEQ/L (136-145)
[2016-10-05 06:18] LABS: ALKALINE PHOSPHATASE 138 U/L (45-117); ALT (GPT) 29 U/L (12-78)
--- NOTE | 2016-10-05 06:40 | HHI.CCPN ---
Subjective Remarks/Hospital Course The patient is an 81 year-old male with a past medical history of prostate cancer, melanoma of the skin, CVA, hypertension, hyperlipidemia, who presented to [facility] ED status post PEA arrest. The patient's stated that she heard a sound in the bathroom and she found him on the floor unresponsive after he hit his head. She called [facility] and when they arrived the patient was pulseless and in PEA arrest. ACLS protocol was initiated. After one round of epi, the patient regained spontaneous circulation. He was intubated in the field by [facility]. Also he was found to be hypotensive and he was given one liter bolus of normal saline by [facility] and the patient received additional two liters of IV fluids in the ER and started on epinephrine drip. He has a port in the right chest for chemotherapy and is being followed by Dr. Rincon, oncologist, from [facility]. When he arrived to the ER, he was tachycardiac with heart rate of 112, hypotensive, with a systolic blood pressure 60s to 70s. His laboratory data showed acute renal failure with a BUN of 76, creatinine 6.63, lactic acidemia with lactic acid level of 5.9. ABG post intubation showed severe metabolic acidosis with a pH of 7.29, CO2 30, pAO2 451, bicarb at 14, saturation 98% on assist control ventilation, rate of 16 , tidal volume 500, PEEP of 5, 100% FIO2. His INR is 1.2 with a PT 13.4. EKG in the ER showed atrial fibrillation with rapid ventricular response at a rate of 107 beats per minute, right bundle-branch block, and ST depression. Dr. Feldman from cardiology service was notified and no plans for immediate cardiac catheterization at this time. Chest x-ray showed mild cardiomegaly otherwise no focal infiltrates. The rest of the ED workup is in progress. His CBC is pending. In addition, the patient is scheduled to undergo CT scan of the brain , CT of the abdomen and pelvis and CT thorax without contrast. He has a troponin measured at 0.16 with total CK of 33 and BMP of 313. SUBJ 10/05/16: Venous duplex shows evidence of bilateral lower extremity DVT. Cardiac arrest seems to be secondary to acute PE most likely. Therapeutic on IV heparin. Coming off pressors. 2-D echo is pending. Patient is currently on 50 g per hour of fentanyl remains encephalopathy. Chest x-ray no pneumothorax Objective Vital Signs Date Time Temp Pulse Resp B/P Pulse Ox O2 Delivery O2 Flow Rate FiO2 10/05/16 03:40 96 30 10/05/16 03:00 89 10/05/16 03:00 10/05/16 00:00 98.3 14 10/04/16 16:23 Ventilator Result Diagram: 10/05/16 0518 10/05/16 0518 Other Results Laboratory Tests Test 10/04/16 10/04/16 16:33 21:30 Blood Gas Puncture Site RT RADIAL RT RADIAL Blood Gas Patient Temperature 98.6 98.6 Blood Gas HCO3 14 mmol/L 16 mmol/L (22-26) (22-26) Blood Gas Base Excess -11.5 mmol/L -8.4 mmol/L (-2-2) (-2-2) Blood Gas Oxygen Saturation 98 % (90-100) 96 % (90-100) Arterial Blood pH 7.29 7.35 (7.380-7.420) (7.380-7.420) Arterial Blood Partial 30 mmHg (38-42) 30 mmHg (38-42) Pressure CO2 Arterial Blood Partial 451 mmHG 149 mmHg Pressure O2 (61-120) (61-120) Arterial Blood Oxygen Content 12.2 Vol % 12.0 Vol % (12.0-20.0) (12.0-20.0) Arterial Blood 0.0 % (0-4) 1.2 % (0-4) Carboxyhemoglobin Arterial Blood Methemoglobin 0.3 % (0-2) 1.5 % (0-2) Blood Gas Hemoglobin 8.0 G/DL 8.7 G/DL (12.0-16.0) (12.0-16.0) Oxygen Delivery Device VENTILATOR VENTILATOR Blood Gas Ventilator Setting AC,16,500,PEEP5 500/18/PEEP 5 Blood Gas Inspired Oxygen 100 % 40 % Objective Remarks The patient is an 81 year-old male, status post PEA arrest. Now intubated sedated with fentanyl at 50 g per hour HEENT: Atraumatic, normocephalic. Pupils equal, round and reactive to light. Corneal reflex+. Orotracheally intubated NECK: Supple. No JVD, adenopathy or thyromegaly. Trachea midline. CARDIOVASCULAR: Tachycardiac. Normal S1-S2. No murmurs, rubs, or gallops noted. Off all pressors at this time PULMONARY: Bilateral equal entry. No rales or wheezing. ABDOMEN: Soft, nontender. No distension. Positive bowel sounds. EXTREMITIES: No cyanosis or clubbing, 2+ edema. NEUROLOGIC: Opens eyes to noxious stimuli. DAMION. Positive corneal reflex. Withdraws bilateral lower extremities to pain. A/P Assessment and Plan IMPRESSION Status post cardiopulmonary PEA arrest. Probable acute pulmonary embolism Bilateral DVT lower extremity Lactic acidemia Acute renal failure. Acute respiratory failure. Acute encephalopathy Right pneumothorax status post chest tube placement Multiple right anterior rib fractures Mild elevation in troponins. Anion gap metabolic acidosis secondary to lactic acidemia and renal failure. History of CVA. History of coronary artery disease. History of hypertension Hyperlipidemia. History of prostate cancer. History of melanoma. RECOMMENDATIONS Neuro: - On fentanyl infusion for sedation and vent synchrony - Daily sedation vacation - Monitor neuro status closely. - CT brain negative for acute findings - Encephalopathy most likely secondary to anoxia. EEG and MRI if not improving Resp: - Continue with vent support and maintain sats above 92%. - Bronchodilator in the form of DuoNeb q6. ICU vent bundle. - Right chest tube placed for pneumothorax now resolved - On IV heparin - Venous ultrasound shows bilateral DVT, therapeutic on heparin - PEA seems to be secondary to acute pulmonary embolism CVS: - Shock now resolving, trend lactic acid - PEA arrest most likley from PE. - Cardiology consult and 2-D echo pending - Continue IV heparin - Monitor cardiac enzymes with troponins - Cardiology service, Dr. Feldman, was notified by ED. : - Acute kidney injury most likely from ATN/hypotension - Monitor renal function I&O and avoid for toxins. Lori. - Continue bicarb gtt- sterile water with 2 amps of bicarb at 150 mL an hour. GI: - Protonix 40 mg IV daily for GI prophylaxis and start tube feeds with Jevity today ID: - Monitor for signs of infection which include fever and WBC. - Follow up on blood cultures which was performed in the ER. - Check urinalysis with culture if indicated and follow up on CBC. - Placed on empiric Azactam and Flagyl HEME - Monitor CBC. coags - Continue IV heparin for bilateral DVT and probable PE Endo: - On stress dose steroids hydrocortisone 100 mg IV q8. - Sliding scale insulin with Accu-Chek q4 for glycemic control as the patient is on IV steroids. Proph: - GI prophylaxis with Protonix 40 mg daily and DVT prophylaxis with SCDs. continue IV Heparin The patient remains critically ill with respiratory failure, renal failure, shock, post cardiopulmonary arrest. Bilateral LE DVT indicates that probable reason for PE NSTs acute pulmonary embolism. Dr. Moreno spoke to patient's family at the bed side, updated them on his condition and they expressed that they would like everything done for the patient. Critical care time: 45 minutes excluding procedures. Xi Montana MD Oct 05, 2016 06:40 Right-sided port in place. We will place a heart line. Critical care time: 50 minutes excluding procedures. Xi Montana MD Oct 05, 2016 06:40
--- NOTE | 2016-10-05 07:04 | RADRPT ---
EXAM DATE/TIME: 10/05/2016 06:35 [facility] COMPARISON: No previous studies available for comparison. INDICATIONS : Respiratory status post heart attack. MEDICAL HISTORY : Cardiovascular disease. Hypertension. Sickle Cell disease.prostate cancer SURGICAL HISTORY : unobtainable ENCOUNTER: Subsequent ACUITY: 2 days PAIN SCORE: Non-responsive. LOCATION: Bilateral upper chest FINDINGS: Slight consolidation seen left mid and lower lung not significantly changed. No perceptible effusion. No pneumothorax. Heart size stable, within normal limits. Thoracic aorta is mildly tortuous. Endotracheal tube tip is approximately 4 cm above the rasta. Nasogastric tube courses into the stoma ch. There is a right internal jugular [id number] catheter with tip at the atrial caval junction. CONCLUSION: No significant change. Very mild left-sided consolidation. Rubén De Leon MD on October 05, 2016 at 7:01 Board Certified Radiologist. This report was verified electronically.
[2016-10-05 07:06] LABS: PLATELET ESTIMATE SMEAR LOW (NORMAL); PLATELET MORPHOLOGY NORMAL (NORMAL); SCAN/DIFF AUTO DIFF CONFIRMED
[2016-10-05] MEDS ORDERED: AZTREONAM INJ 2,000 MG in SODIUM CHLORIDE 0.9% INJ 100 ML IV SCH (08:00)
--- NOTE | 2016-10-05 08:31 | EKG ---
Date Performed: 10/04/2016 Time Performed: 15:18:01 PTAGE: 81 years EKG: ATRIAL FIBRILLATION WITH RAPID VENTRICULAR RESPONSE RIGHT BUNDLE BRANCH BLOCK ST DEPRESSION , CONSIDER SUBENDOCARDIAL INJURY ABNORMAL ECG INTERPRETATION BASED ON A DEFAULT AGE OF 40 YEARS PREV IOUS TRACING : 02/17/2015 16.57 DOCTOR: Franck Saleem Interpretating Date/Time 10/05/2016 08:27:56
[2016-10-05] MEDS ORDERED: PNEUMOCOCCAL POLYVALENT INJ 25 MCG/0.5 ML SYR IM ONE (09:00)
[2016-10-05] MEDS: CHLORHEXIDINE 0.12% (ORAL KIT) 15 ML CUP MT SCH ×2 (09:41→20:31)
[2016-10-05] MEDS: PANTOPRAZOLE SODIUM 40 MG VIAL IV SCH (09:48)
[2016-10-05] MEDS: DOCUSATE SODIUM 50 MG/SENNA 8.6 MG TAB PO SCH ×2 (09:48→21:18)
[2016-10-05] MEDS: metroNIDAZOLE 500 MG INJ 100 ML IV SCH ×3 (09:53→23:48)
--- NOTE | 2016-10-05 10:06 | MB ---
cc: ANTHONY MONSALVE DATE OF CONSULTATION 10/05/2016 INDICATION Cardiac arrest HISTORY OF PRESENT ILLNESS An 81-year-old gentleman without prior history of known heart disease who presented to the emergency department after the arrest at home. Apparently his heard him hit the bathroom floor, came in and called an ambulance. Upon arrival, he was found to be PEA arrest and ACLS protocol initiated. They were able to regain spontaneous circulation, but it appears that the patient had sustained some level of anoxic brain injury. He was hypotensive and tachycardia upon arrival in atrial fibrillation. He did have some ST depression, talked with the emergency department nurse about potential for cardiac catheterization, but given his instability and PEA arrest, we felt it would probably best not to take him right to the laborer pipelines. He was admitted to the Intensive Care Unit and followed by the patrol conductor. His initial workup revealed that he had acute renal failure, some cardiomegaly with bilateral lower extremity DVT, therapeutic IV heparin. I think the working diagnosis is that he probably has an acute pulmonary embolism. He has no neurologic recovery. PAST MEDICAL HISTORY 1. Prostate cancer 2. Coronary artery disease 3. Hypertension 4. Stroke 5. Sleep apnea ALLERGIES [facility] FAMILY HISTORY Unknown REVIEW OF SYSTEMS Unobtainable SOCIAL HISTORY Unknown PHYSICAL EXAMINATION The patient is intubated, temperature 98, pulse is 96, blood pressure 142/95 mmHg. NECK: No jugular venous distension. LUNGS: Clear auscultation bilaterally with rhonchi throughout. CARDIOVASCULAR: Regular without murmur, rubs or gallops. ABDOMEN: Nondistended. EXTREMITIES: Show no clubbing or cyanosis. There is 2+ edema. ASSESSMENT 1. Status cardiopulmonary PEA arrest. 2. Probable acute pulmonary embolism 3. Bilateral lower extremity DVT 4. Renal failure 5. Anoxic brain injury with acute encephalopathy 6. Right pneumothorax status post chest tube 7. Coronary disease 8. Stroke 9. Hypertension 10. Hyperlipidemia PLAN At this point, the patient is on ventilator support without any meaningful neurologic recovery. He is on intravenous heparin for suspected acute pulmonary embolism. From a cardiac perspective, I do not think we will need to proceed with any further workup as the underlying diagnosis likely the pulmonary embolism is the cause of his PEA arrest. He has some coronary calcifications, but renal failure and mildly elevated troponin, but cardiac catheterization will not be helpful. We will follow up on the 2-D echocardiogram. Without any meaningful neurologic recovery, he has a very poor prognosis. At this point, we will sign off. If there is any additional help needed from cardiology, just give us a call. MD DMITRY Patton/ALLEN /9:29 AM /9:52 AM
[2016-10-05] MEDS: AZTREONAM INJ 500 MG in SODIUM CHLORIDE 0.9% INJ 100 ML IV SCH ×2 (12:32→16:49)
--- NOTE | 2016-10-05 13:00 | PD.CONS ---
[facility] Service Urology Consult Requested By Dr. Paul Primary Care Physician Yeison Tripp MD Diagnosis: History of Present Illness 81-year-old gentleman with history prostate cancer treated with radiation therapy who is now admitted with probable pulmonary embolism secondary to DVT. While in the ICU attempts were made to pass a Sandoval catheter without success and a condom catheter was placed. Patient has not had any urine output and a urology consult was placed to insert a Sandoval catheter. Unable to obtain any additional history from patient as he was intubated and on a mechanical ventilator. Review of Systems ROS Limitations: Intubated Except as stated in HPI: all other systems reviewed are Neg Past Family Social History Past Medical History Prostate cancer treated with radiation therapy History CVA Hypertension Hyperlipidemia Chronic kidney disease Coronary artery disease Past Surgical History Cholecystectomy Cataract surgery Excision melanoma Reported Medications Refer to EMR Allergies: Coded Allergies: Penicillin (Verified Allergy, Severe, TONGUE SWELLING, GENERALIZED HIVES, 10/04/16) Active Ordered Medications Refer to EMR Family History Reviewed and noncontributory Social History Unable to obtain Physical Exam Vital Signs Date Time Temp Pulse Resp B/P Pulse Ox O2 Delivery O2 Flow Rate FiO2 10/05/16 11:00 97.7 92 23 127/82 98 10/05/16 11:00 100 10/05/16 11:00 30 10/05/16 11:00 97.7 92 23 127/82 98 10/05/16 11:00 30 10/05/16 11:00 100 10/05/16 09:01 97 30 10/05/16 07:00 97.7 91 19 134/89 98 10/05/16 07:00 30 10/05/16 07:00 90 10/05/16 03:40 96 30 10/05/16 03:00 30 10/05/16 03:00 89 10/05/16 03:00 10/05/16 00:36 98 30 10/05/16 00:00 98.3 96 14 142/95 96 10/04/16 23:00 98.7 86 14 120/85 96 10/04/16 23:00 98 10/04/16 20:50 98 30 10/04/16 19:00 98.0 98 14 145/98 96 10/04/16 18:54 102 10/04/16 18:00 50 10/04/16 18:00 99 50 10/04/16 17:26 98/56 10/04/16 17:11 112 86/52 100 10/04/16 17:04 50 10/04/16 17:03 110 81/50 100 10/04/16 16:54 100 50 10/04/16 16:30 109 81/49 100 10/04/16 16:23 114 76/49 100 Ventilator 10/04/16 16:06 106 74/44 100 10/04/16 15:58 101 25 70/44 97 Ventilator 10/04/16 15:52 111 59/39 10/04/16 15:43 104 57/35 99 10/04/16 15:33 95 100 10/04/16 15:23 97.2 106 64/45 100 10/04/16 15:22 100 Physical Exam GENERAL: Intubated SKIN: No rashes, ecchymoses or lesions. Cool and dry. HEAD: Atraumatic. Normocephalic. No temporal or scalp tenderness. EYES: No scleral icterus. No injection or drainage. ENT: Nose without bleeding, purulent drainage or septal hematoma. Throat without erythema, tonsillar hypertrophy or exudate. Uvula midline. Airway patent. NECK: Trachea midline. No JVD or lymphadenopathy. Supple, nontender, no meningeal signs. GASTROINTESTINAL: Abdomen soft, non-tender, nondistended. No hepato-splenomegaly , or palpable masses. No guarding. GENITOURINARY: Bladder markedly distended MUSCULOSKELETAL: Extremities without clubbing, cyanosis, or edema. NEUROLOGICAL: Intubated and sedated Lab results reviewed: Yes Laboratory Tests Test 10/04/16 10/04/16 10/04/16 10/04/16 14:45 14:55 16:33 16:40 Lactic Acid Level 5.9 Prothrombin Time 13.4 Prothromb Time International 1.2 Ratio Activated Partial 34.4 Thromboplast Time Sodium Level 146 Potassium Level 4.7 Chloride Level 112 Carbon Dioxide Level 18.3 Anion Gap 16 Blood Urea Nitrogen 76 Creatinine 6.63 Estimat Glomerular Filtration 8 Rate Random Glucose 168 Calcium Level 8.0 Total Creatine Kinase 33 Troponin I 0.16 B-Type Natriuretic Peptide 313 Blood Type O POSITIVE Antibody Screen NEGATIVE Blood Gas Puncture Site RT RADIAL Blood Gas Patient Temperature 98.6 Blood Gas HCO3 14 Blood Gas Base Excess -11.5 Blood Gas Oxygen Saturation 98 Arterial Blood pH 7.29 Arterial Blood Partial 30 Pressure CO2 Arterial Blood Partial 451 Pressure O2 Arterial Blood Oxygen Content 12.2 Arterial Blood 0.0 Carboxyhemoglobin Arterial Blood Methemoglobin 0.3 Blood Gas Hemoglobin 8.0 Oxygen Delivery Device VENTILATOR Blood Gas Ventilator Setting AC,16,500,PEEP5 Blood Gas Inspired Oxygen 100 White Blood Count 17.0 Red Blood Count 2.63 Hemoglobin 8.2 Hematocrit 24.9 Mean Corpuscular Volume 94.4 Mean Corpuscular Hemoglobin 31.3 Mean Corpuscular Hemoglobin 33.1 Concent Red Cell Distribution Width 14.9 Platelet Count 99 Mean Platelet Volume 9.8 Neutrophils (%) (Auto) 86.1 Lymphocytes (%) (Auto) 11.4 Monocytes (%) (Auto) 2.1 Eosinophils (%) (Auto) 0.3 Basophils (%) (Auto) 0.1 Neutrophils # (Auto) 14.6 Lymphocytes # (Auto) 1.9 Monocytes # (Auto) 0.4 Eosinophils # (Auto) 0.0 Basophils # (Auto) 0.0 CBC Comment AUTO DIFF Differential Total Cells 100 Counted Neutrophils % (Manual) 86 Band Neutrophils % 3 Lymphocytes % 9 Neutrophils # (Manual) 15.5 Metamyelocytes 2 Differential Comment FINAL DIFF MANUAL Platelet Estimate LOW Platelet Morphology Comment NORMAL Ovalocytes 1+ Test 10/04/16 10/04/16 10/04/16 10/05/16 20:30 21:30 23:30 05:18 Sodium Level 144 144 Potassium Level 4.4 4.2 Chloride Level 112 110 Carbon Dioxide Level 17.4 19.3 Anion Gap 15 15 Blood Urea Nitrogen 78 77 Creatinine 5.98 5.68 Estimat Glomerular Filtration 9 10 Rate Random Glucose 222 200 Lactic Acid Level 4.4 Calcium Level 7.6 7.6 Troponin I 2.85 Blood Gas Puncture Site RT RADIAL Blood Gas Patient Temperature 98.6 Blood Gas HCO3 16 Blood Gas Base Excess -8.4 Blood Gas Oxygen Saturation 96 Arterial Blood pH 7.35 Arterial Blood Partial 30 Pressure CO2 Arterial Blood Partial 149 Pressure O2 Arterial Blood Oxygen Content 12.0 Arterial Blood 1.2 Carboxyhemoglobin Arterial Blood Methemoglobin 1.5 Blood Gas Hemoglobin 8.7 Oxygen Delivery Device VENTILATOR Blood Gas Ventilator Setting 500/18/PEEP 5 Blood Gas Inspired Oxygen 40 White Blood Count 25.0 14.5 Red Blood Count 3.13 2.97 Hemoglobin 10.0 9.3 Hematocrit 29.2 27.9 Mean Corpuscular Volume 93.4 94.0 Mean Corpuscular Hemoglobin 31.8 31.2 Mean Corpuscular Hemoglobin 34.1 33.2 Concent Red Cell Distribution Width 14.6 14.6 Platelet Count 104 83 Mean Platelet Volume 9.7 10.0 Prothrombin Time 13.0 Prothromb Time International 1.2 Ratio Activated Partial 32.7 67.7 Thromboplast Time Nasal Screen MRSA (PCR) MRSA NOT DETECTED Neutrophils (%) (Auto) 91.3 Lymphocytes (%) (Auto) 5.0 Monocytes (%) (Auto) 3.5 Eosinophils (%) (Auto) 0.0 Basophils (%) (Auto) 0.2 Neutrophils # (Auto) 13.2 Lymphocytes # (Auto) 0.7 Monocytes # (Auto) 0.5 Eosinophils # (Auto) 0.0 Basophils # (Auto) 0.0 CBC Comment AUTO DIFF Differential Comment AUTO DIFF CONFIRMED Platelet Estimate LOW Platelet Morphology Comment NORMAL Total Bilirubin 1.0 Aspartate Amino Transf 50 (AST/SGOT) Alanine Aminotransferase 29 (ALT/SGPT) Alkaline Phosphatase 138 Total Protein 5.7 Albumin 2.3 Test 10/05/16 08:15 Lactic Acid Level 2.1 Date/Time Procedure Status Source Growth 10/04/16 14:55 Aerobic Blood Culture - Preliminary Resulted Blood Peripheral NO GROWTH IN 1 DAY 10/04/16 14:55 Anaerobic Blood Culture - Preliminary Resulted Blood Peripheral NO GROWTH IN 1 DAY Result Diagram: 10/05/16 0518 10/05/16 0518 Imaging Last Impressions Chest X-Ray 10/05/16 0000 Signed Impressions: Service Date/Time: Wednesday, October 05, 2016 06:35 - CONCLUSION: No significant change. Very mild left-sided consolidation. Rubén De Leon MD Lower Extremity Ultrasound 10/04/16 0000 Signed Impressions: Service Date/Time: Tuesday, October 04, 2016 20:23 - CONCLUSION: 1. Positive for deep venous thrombosis in the posterior tibial veins bilaterally and in the distal left femoral vein. Yemi Resendiz MD Head CT 10/04/16 0000 Signed Impressions: Service Date/Time: Tuesday, October 04, 2016 17:40 - CONCLUSION: 1. No acute findings. Remote lacunar infarcts again noted bilaterally. Postoperative sinus surgery. Yemi Resendiz MD Chest CT 10/04/16 0000 Signed Impressions: Service Date/Time: Tuesday, October 04, 2016 17:43 - CONCLUSION: 1. Multiple right anterior rib fractures with small to moderate right pneumothorax. Endotracheal tube, nasogastric tube and right [id number] in satisfactory position. 2. Moderate to severe coronary calcifications. 3. Upper abdomen reveals some mild hydronephrosis. Mild anasarca. Yemi Resendiz MD Abdomen/Pelvis CT 10/04/16 0000 Signed Impressions: Service Date/Time: Tuesday, October 04, 2016 17:45 - CONCLUSION: 1. Multiple right-sided rib fractures with small to moderate right pneumothorax. 2. Hydronephrosis with distended bladder likely bladder outlet obstruction. 3. Anasarca. Yemi Resendiz MD Assessment and Plan Assessment and Plan Urologic impression: Urinary retention related to urethral stricture formation which was dilated at the bedside. Plan: #1 continue Sandoval catheter to gravity drainage #2 may DC Sandoval when and if overall clinical condition improves #3 will be available as needed Amando Vines MD Oct 05, 2016 13:00
[2016-10-05 16:36] LABS: APTT (PATIENT) 102.4 SEC (24.3-30.1)
--- NOTE | 2016-10-05 17:27 | ECHRPT ---
Indication: PEA ARREST CONCLUSIONS Normal left ventricular size. Wall thickness is normal. The left ventricular systolic function is grossly normal on limited imaging. EF 60%. No regional wall motion abnormalities are present. Doppler parameters are consistent with impaired left ventricular relaxtion (grade 1 diastolic dysfun ction). The right ventricle is moderately to severely dilated. The right ventricular systoilc function is severely decreased. The right ventricular wall thickness is normal. The right atrial size is moderately dilated. Mild mitral valve regurgitation. Aortic valve sclerosis is present. Trace aortic valve regurgitation. Mild aortic valve stenosis. Aortic valve mean gradient is 15 mmHg. There is mild to moderate tricuspid valve regurgitation. There is estimated moderate pulmonary hypertension present (range 50-60 mmHg). BP: 127 / 85 HR: Rhythm: Sinus MEASUREMENTS (Male / Female) Normal Values Technical Quality:Fair 2D ECHO LV Diastolic Diameter PLAX 4.4 cm 4.2 - 5.9 / 3.9 - 5.3 cm LV Systolic Diameter PLAX 2.8 cm IVS Diastolic Thickness 1.0 cm 0.6 - 1.0 / 0.6 - 0.9 cm LVPW Diastolic Thickness 0.8 cm 0.6 - 1.0 / 0.6 - 0.9 cm LV Relative Wall Thickness 0.4 RV Internal Dim ED PLAX 4.6 cm LVOT Diameter 2.2 cm Aortic Root Diameter 3.3 cm LA Systolic Diameter LX 1.9 cm 3.0 - 4.0 / 2.7 - 3.8 cm M-MODE AV Cusp Separation MM 1.3 cm DOPPLER AV Peak Velocity 269.0 cm/s AV Peak Gradient 28.9 mmHg AV Mean Gradient 15.0 mmHg AV Velocity Time Integral 42.2 cm LVOT Peak Velocity 51.1 cm/s LVOT Peak Gradient 1.0 mmHg LVOT Velocity Time Integral 8.0 cm AV Area Cont Eq vti 0.7 cm AV Area Cont Eq pk 0.7 cm Mitral E Point Velocity 44.4 cm/s Mitral A Point Velocity 55.8 cm/s Mitral E to A Ratio 0.8 TR Peak Velocity 333.0 cm/s TR Peak Gradient 44.4 mmHg PV Peak Velocity 43.6 cm/s PV Peak Gradient 0.8 mmHg FINDINGS LEFT VENTRICLE Normal left ventricular size. Wall thickness is normal. The left ventricular systolic function is grossly normal on limited imaging. EF 60%. No regional wall motion abnormalities are present. Doppler parameters are consistent with impaired left ventricular relaxtion (grade 1 diastolic dysfun ction). RIGHT VENTRICLE The right ventricle is moderately to severely dilated. The right ventricular systoilc function is severely decreased. The right ventricular wall thickness is normal. The measurements of the RV is 90 x 52 mm. LEFT ATRIUM The left atrial size is normal. RIGHT ATRIUM The right atrial size is moderately dilated. ATRIAL SEPTUM The interatrial septum not well visualized. AORTA The aortic root and proximal ascending aorta are normal in size on limited imaging. MITRAL VALVE Structurally normal mitral valve. Mild mitral valve regurgitation. AORTIC VALVE Aortic valve sclerosis is present. Trace aortic valve regurgitation. Mild aortic valve stenosis. Aortic valve area is 0.72 cm. Aortic valve mean gradient is 15 mmHg. TRICUSPID VALVE Structurally normal tricuspid valve. There is mild to moderate tricuspid valve regurgitation. There is estimated moderate pulmonary hypertension present (range 50-60 mmHg). PULMONARY VALVE The pulmonary valve is not well visualized. . No pulmonary valve regurgitation or stenosis. VESSELS The inferior vena cava is normal in size. PERICARDIUM No pericardial effusion. Melanie Roth MD, FACC (Electronically Signed) Final Date:05 October 2016 17:25
--- NOTE | 2016-10-05 17:28 | HHI.NPPN ---
Subjective History of Present Illness 81-year-old male with a past medical history of prostate cancer, history of cerebrovascular accident, hypertension, hyperlipidemia, mild chronic kidney disease, history of melanoma of the skin, who was brought to the hospital post cardiac arrest. I was called to see the patient because of a very high BUN and creatinine and high potassium level. Additional Remarks Patient remain intubated and now off sedation, unresponsive. Objective Data Data 10/04/16 10/05/16 18:59 06:59 Intake Total 1244 ml Output Total 120 ml Balance 1124 ml Intake IV Total 1244 ml Output Urine Total 0 ml Gastric Drainage Total 100 ml Chest Tube Drainage Total 20 ml # Bowel Movements 4 Vital Signs Date Time Temp Pulse Resp B/P Pulse Ox O2 Delivery O2 Flow Rate FiO2 10/05/16 15:57 98 30 10/05/16 15:00 97.7 84 18 135/82 98 10/05/16 15:00 30 10/05/16 15:00 100 10/05/16 11:00 97.7 92 23 127/82 98 10/05/16 11:00 100 10/05/16 11:00 30 10/05/16 11:00 97.7 92 23 127/82 98 10/05/16 11:00 30 10/05/16 11:00 100 10/05/16 09:01 97 30 10/05/16 07:00 97.7 91 19 134/89 98 10/05/16 07:00 30 10/05/16 07:00 90 10/05/16 03:40 96 30 10/05/16 03:00 30 10/05/16 03:00 89 10/05/16 03:00 10/05/16 00:36 98 30 10/05/16 00:00 98.3 96 14 142/95 96 10/04/16 23:00 98.7 86 14 120/85 96 10/04/16 23:00 98 10/04/16 20:50 98 30 10/04/16 19:00 98.0 98 14 145/98 96 10/04/16 18:54 102 10/04/16 18:00 50 10/04/16 18:00 99 50 10/04/16 17:26 98/56 -: 10/05/16 0518 10/05/16 0518 Physical Exam General Appearance Remarks Intubated and off sedation. Eyes Eye Exam: Pupils Equal Throat Throat Exam: Oral Mucosa Marceline & Moist Neck Neck Exam: Neck Supple Pulmonary Resp Exam: No Distress, Rhonchi, Decreased Bases, Diminished Breath Sounds, Poor Inspiratory Effort Cardiology CV Exam: Regular, Normal Sinus Rhythm Gastrointestinal/Abdomen GI Exam: Soft, Non-Tender, Bowel Sounds Present Extremeties Extremities Exam: Trace Edema Neurologic Neuro Exam: Obtunded, Unresponsive Assessment/Plan Assessment Summary: INDU/Acute Renal Failure Electrolyte Assessment: Hyperkalemia, Metabolic Acidosis Problem List: (1) Encephalopathy (2) HTN (hypertension) (3) Chronic ischemic multifocal anterior circulation stroke (4) Metabolic acidosis (5) Hyperkalemia (6) Acute kidney injury Plan Patient was seen by urology, has ureteral dilatation and Sandoval;s inserted at bed side. Has almost 2 liters of dark urine came out. BP is stable, off sedation. Continue IVF. Creatinine is almost same, K is normalized. Now urine put put is better, awaiting improvement in the renal function. Problem Qualifiers (1) HTN (hypertension): Qualified Code: I10 - Essential hypertension Steven Almaraz MD Oct 05, 2016 17:28
[2016-10-05 19:45] LABS: APTT (PATIENT) 53.3 SEC (24.3-30.1)
[2016-10-06] VITALS (13 sets, daily range): BP systolic 129–150; BP diastolic 78–91; PULSE 80–107; RESP 18; TEMP 98.4–99.7; O2SAT 92–99
[2016-10-06] MEDS: RESP: ALBUTEROL 2.5 MG/IPRATROPIUM 0.5 MG NEB (SCH) INH ×6 (00:30→21:08)
[2016-10-06] MEDS: INSULIN NovoLIN REGULAR SUPPLEMENTAL SCALE SQ SCH ×6 (01:00→21:00)
[2016-10-06] MEDS: HYDROCORTISONE SOD SUCCINATE 100 MG VIAL IV PUSH SCH ×3 (02:51→16:26)
[2016-10-06] MEDS: AZTREONAM INJ 500 MG in SODIUM CHLORIDE 0.9% INJ 100 ML IV SCH ×2 (02:51→09:41)
[2016-10-06] MEDS: CHLORHEXIDINE GLUCONATE 2 % 1 PACK (2 CLOTHS) TOP SCH (02:56)
[2016-10-06] MEDS: SODIUM BICARBONATE 8.4% INJ 100 MEQ in WATER STERILE FOR INJ 850 ML IV SCH ×4 (03:17→20:40)
[2016-10-06 05:10] LABS: APTT (PATIENT) 51.4 SEC (24.3-30.1)
--- NOTE | 2016-10-06 06:20 | RADRPT ---
EXAM DATE/TIME: 10/06/2016 05:56 [facility] COMPARISON: CHEST SINGLE AP, October 05, 2016, 6:35. INDICATIONS : Pneumothorax. MEDICAL HISTORY : Hypertension. Carcinoma, prostate. Cerebrovascular accident. Myocardial infarction. Diabetes. Sickle cell disease. Carcinoma melanoma. SURGICAL HISTORY : None. ENCOUNTER: Subsequent ACUITY: 2 days PAIN SCORE: Non-responsive. LOCATION: Bilateral chest FINDINGS: Left lung is clear. Cardiomegaly. Aortic calcification. Right-sided portacatheter is present. Endotra cheal tube tip terminates 3.1 cm above the rasta. There is a large amount of subcutaneous emphysema on the right lateral thorax. There is a large right-sided pneumothorax extending from base to apex. A t the base there is 3 cm above pleural separation, at the apex and 4 cm in a pigtail catheter is pres ent on the coil is seen within the subcutaneous tissues. CONCLUSION: Large right-sided pneumothorax with extensive subcutaneous emphysema right chest, pigtail catheter in the subcutaneous tissues. Matthew Juarez MD on October 06, 2016 at 6:17 Board Certified Radiologist. This report was verified electronically.
[2016-10-06 06:35] LABS: AUTOMATED NEUTROPHIL # 13.8 TH/MM3 (1.8-7.7); BASOPHIL # 0.1 TH/MM3 (0-0.2); BASOPHIL % 0.4 % (0.0-2.0); EOSINOPHIL % 0.2 % (0.0-4.0); HEMATOCRIT 24.6 % (39.0-51.0); LYMPH % 6.8 % (9.0-44.0); LYMPHOCYTE # 1.1 TH/MM3 (1.0-4.8); MEAN CELL VOLUME 90.1 FL (80.0-100.0); MEAN CORPUSCULAR HEMOGLOBIN 31.5 PG (27.0-34.0); MONO % 4.9 % (0.0-8.0); NEUT % 87.7 % (16.0-70.0); PLATELET COUNT 78 TH/MM3 (150-450); RED BLOOD COUNT 2.73 MIL/MM3 (4.50-5.90); RED CELL DISTRIBUTION WIDTH 14.5 % (11.6-17.2); WHITE BLOOD COUNT 15.8 TH/MM3 (4.0-11.0)
[2016-10-06 06:37] LABS: HEMO FLAGS AUTO DIFF
[2016-10-06 06:55] LABS: BICARBONATE 27.3 MEQ/L (21.0-32.0); POTASSIUM 3.3 MEQ/L (3.5-5.1)
[2016-10-06] MEDS ORDERED: LIDOCAINE HCL 1% 50 ML VIAL ONE (07:04)
[2016-10-06 07:08] LABS: CALCIUM-PROTEIN CORRECTED 7.8 MG/DL (8.5-10.1)
[2016-10-06 07:09] LABS: BANDS 13 % (0-6); NEUTROPHIL # MANUAL DIFF 14.2 TH/MM3 (1.8-7.7); POLYS (SEG NEUTROPHILS) 77 % (16-70); WBC DIFF SAMPLE 100
[2016-10-06 07:11] LABS: KERATOCYTES OCC (NORMAL); OVALOCYTES 1+ (NORMAL); PLATELET ESTIMATE SMEAR LOW (NORMAL); PLATELET MORPHOLOGY NORMAL (NORMAL); SCAN/DIFF FINAL DIFF MANUAL
[2016-10-06] MEDS: CHLORHEXIDINE 0.12% (ORAL KIT) 15 ML CUP MT SCH ×2 (08:29→20:00)
[2016-10-06] MEDS: DOCUSATE SODIUM 50 MG/SENNA 8.6 MG TAB PO SCH ×2 (08:30→22:16)
[2016-10-06] MEDS: PANTOPRAZOLE SODIUM 40 MG VIAL IV SCH (08:30)
[2016-10-06] MEDS: metroNIDAZOLE 500 MG INJ 100 ML IV SCH ×2 (08:35→16:26)
--- NOTE | 2016-10-06 09:00 | RADRPT ---
EXAM DATE/TIME: 10/06/2016 07:35 [facility] COMPARISON: CT THORAX W/O CONTRAST, October 04, 2016, 17:43. CHEST SINGLE AP, October 06, 2016, 5:56. INDICATIONS : Chest tube placement, right. MEDICAL HISTORY : Hypertension. Carcinoma, prostatic. Myocardial infarction. Sickle cell disease. Cerebrovascular a ccident. Diabetes. Carcinoma melanoma. SURGICAL HISTORY : None. ENCOUNTER: Initial ACUITY: 1 day PAIN SCORE: Non-responsive. LOCATION: Right chest FINDINGS: There has been interval placement of a right thoracostomy tube with resolution of pneumothorax on the right. There is moderate right base contusion and left lung is incompletely included on this film. T here appears to be some consolidative change at the left base. The visualized cardiac contours are gr ossly stable accounting for projection. Endotracheal tube, nasogastric tube and right chest port are again noted. CONCLUSION: Right thoracostomy tube placement with resolution of pneumothorax Rubén Sheriff MD on October 06, 2016 at 8:56 Board Certified Radiologist. This report was verified electronically.
--- NOTE | 2016-10-06 09:31 | HHI.CCPN ---
Subjective Remarks/Hospital Course The patient is an 81 year-old male with a past medical history of prostate cancer, melanoma of the skin, CVA, hypertension, hyperlipidemia, who presented to [facility] ED status post PEA arrest. The patient's stated that she heard a sound in the bathroom and she found him on the floor unresponsive after he hit his head. She called [facility] and when they arrived the patient was pulseless and in PEA arrest. ACLS protocol was initiated. After one round of epi, the patient regained spontaneous circulation. He was intubated in the field by [facility]. Also he was found to be hypotensive and he was given one liter bolus of normal saline by [facility] and the patient received additional two liters of IV fluids in the ER and started on epinephrine drip. He has a port in the right chest for chemotherapy and is being followed by Dr. Rincon, oncologist, from [facility]. When he arrived to the ER, he was tachycardiac with heart rate of 112, hypotensive, with a systolic blood pressure 60s to 70s. His laboratory data showed acute renal failure with a BUN of 76, creatinine 6.63, lactic acidemia with lactic acid level of 5.9. ABG post intubation showed severe metabolic acidosis with a pH of 7.29, CO2 30, pAO2 451, bicarb at 14, saturation 98% on assist control ventilation, rate of 16 , tidal volume 500, PEEP of 5, 100% FIO2. His INR is 1.2 with a PT 13.4. EKG in the ER showed atrial fibrillation with rapid ventricular response at a rate of 107 beats per minute, right bundle-branch block, and ST depression. Dr. Feldman from cardiology service was notified and no plans for immediate cardiac catheterization at this time. Chest x-ray showed mild cardiomegaly otherwise no focal infiltrates. The rest of the ED workup is in progress. His CBC is pending. In addition, the patient is scheduled to undergo CT scan of the brain , CT of the abdomen and pelvis and CT thorax without contrast. He has a troponin measured at 0.16 with total CK of 33 and BMP of 313. SUBJ 10/05/16: Venous duplex shows evidence of bilateral lower extremity DVT. Cardiac arrest seems to be secondary to acute PE most likely. Therapeutic on IV heparin. Coming off pressors. 2-D echo is pending. Patient is currently on 50 g per hour of fentanyl remains encephalopathy. Chest x-ray no pneumothorax 10/06 Patient remains intubated found to have sub Q emphysema and STAT CXR showed large right sided PTX and right pigtail catheter was in sub Q tissue, 28Fr CT was placed with post CXR showed resolution of PTX. Renal function is improving with Cr: 3.76 today from 5.68. Objective Vital Signs Date Time Temp Pulse Resp B/P Pulse Ox O2 Delivery O2 Flow Rate FiO2 10/06/16 07:58 18 10/06/16 07:43 99 50 10/06/16 07:00 100 10/06/16 07:00 98.4 136/81 10/04/16 16:23 Ventilator Intake and Output 10/05/16 10/05/16 10/06/16 08:00 16:00 00:00 Intake Total 1244 ml 2142 ml Output Total 120 ml 2240 ml Balance 1124 ml -98 ml Result Diagram: 10/06/16 0631 10/06/16 0631 Other Results Laboratory Tests Test 10/05/16 10/05/16 10/06/16 10/06/16 15:47 18:51 04:36 06:31 Activated Partial 102.4 SEC 53.3 SEC 51.4 SEC Thromboplast Time White Blood Count 15.8 TH/MM3 Red Blood Count 2.73 MIL/MM3 Hemoglobin 8.6 GM/DL Hematocrit 24.6 % Mean Corpuscular Volume 90.1 FL Mean Corpuscular Hemoglobin 31.5 PG Mean Corpuscular Hemoglobin 35.0 % Concent Red Cell Distribution Width 14.5 % Platelet Count 78 TH/MM3 Mean Platelet Volume 10.6 FL Neutrophils (%) (Auto) 87.7 % Lymphocytes (%) (Auto) 6.8 % Monocytes (%) (Auto) 4.9 % Eosinophils (%) (Auto) 0.2 % Basophils (%) (Auto) 0.4 % Neutrophils # (Auto) 13.8 TH/MM3 Lymphocytes # (Auto) 1.1 TH/MM3 Monocytes # (Auto) 0.8 TH/MM3 Eosinophils # (Auto) 0.0 TH/MM3 Basophils # (Auto) 0.1 TH/MM3 CBC Comment AUTO DIFF Differential Total Cells 100 Counted Neutrophils % (Manual) 77 % Band Neutrophils % 13 % Lymphocytes % 3 % Monocytes % 7 % Neutrophils # (Manual) 14.2 TH/MM3 Differential Comment FINAL DIFF MANUAL Platelet Estimate LOW Platelet Morphology Comment NORMAL Ovalocytes 1+ Keratocytes OCC Sodium Level 142 MEQ/L Potassium Level 3.3 MEQ/L Chloride Level 104 MEQ/L Carbon Dioxide Level 27.3 MEQ/L Anion Gap 11 MEQ/L Blood Urea Nitrogen 72 MG/DL Creatinine 3.76 MG/DL Estimat Glomerular Filtration 16 ML/MIN Rate Random Glucose 118 MG/DL Calcium Level 7.0 MG/DL Protein Corrected Calcium 7.8 MG/DL Total Protein 5.5 GM/DL Imaging Last Impressions Chest X-Ray 10/06/16 0000 Signed Impressions: Service Date/Time: September 07:35 - CONCLUSION: Right thoracostomy tube placement with resolution of pneumothorax Rubén Sheriff MD Lower Extremity Ultrasound 10/04/16 0000 Signed Impressions: Service Date/Time: Tuesday, October 04, 2016 20:23 - CONCLUSION: 1. Positive for deep venous thrombosis in the posterior tibial veins bilaterally and in the distal left femoral vein. Yemi Resendiz MD Head CT 10/04/16 0000 Signed Impressions: Service Date/Time: Tuesday, October 04, 2016 17:40 - CONCLUSION: 1. No acute findings. Remote lacunar infarcts again noted bilaterally. Postoperative sinus surgery. Ymei Resendiz MD Chest CT 10/04/16 0000 Signed Impressions: Service Date/Time: Tuesday, October 04, 2016 17:43 - CONCLUSION: 1. Multiple right anterior rib fractures with small to moderate right pneumothorax. Endotracheal tube, nasogastric tube and right [id number] in satisfactory position. 2. Moderate to severe coronary calcifications. 3. Upper abdomen reveals some mild hydronephrosis. Mild anasarca. Yemi Resendiz MD Abdomen/Pelvis CT 10/04/16 0000 Signed Impressions: Service Date/Time: Tuesday, October 04, 2016 17:45 - CONCLUSION: 1. Multiple right-sided rib fractures with small to moderate right pneumothorax. 2. Hydronephrosis with distended bladder likely bladder outlet obstruction. 3. Anasarca. Yemi Resendiz MD Objective Remarks The patient is an 81 year-old male, status post PEA arrest. Now intubated sedated with fentanyl at 50 g per hour HEENT: Atraumatic, normocephalic. Pupils equal, round and reactive to light. Corneal reflex+. Orotracheally intubated NECK: Supple. No JVD, adenopathy or thyromegaly. Trachea midline. CARDIOVASCULAR: Tachycardiac. Normal S1-S2. No murmurs, rubs, or gallops noted. Off all pressors at this time PULMONARY: Bilateral equal entry. No rales or wheezing. ABDOMEN: Soft, nontender. No distension. Positive bowel sounds. EXTREMITIES: No cyanosis or clubbing, 2+ edema. NEUROLOGIC: Opens eyes to noxious stimuli. DAMION. Positive corneal reflex. Withdraws bilateral lower extremities to pain. A/P Assessment and Plan IMPRESSION Status post cardiopulmonary PEA arrest. Probable acute pulmonary embolism Bilateral DVT lower extremity Lactic acidemia Acute renal failure. Acute respiratory failure. Acute encephalopathy Right pneumothorax status post chest tube placement Multiple right anterior rib fractures Mild elevation in troponins. Anion gap metabolic acidosis secondary to lactic acidemia and renal failure. History of CVA. History of coronary artery disease. History of hypertension Hyperlipidemia. History of prostate cancer. History of melanoma. RECOMMENDATIONS Neuro: - Off sedation monitor neuro status and avoid sedatives - CT brain negative for acute findings - Encephalopathy most likely secondary to anoxia. -Check EEG Resp: - Continue with vent support and maintain sats above 92%. - Bronchodilator in the form of DuoNeb q6. ICU vent bundle. - Right chest tube 28Fr placed for pneumothorax now resolved - On IV heparin - Venous ultrasound shows bilateral DVT, therapeutic on heparin - PEA seems to be secondary to acute pulmonary embolism CVS: -Monitor HR and BP keep MAP>65mmhg - Shock now resolving, trend lactic acid ( trending down) - PEA arrest most likely from PE. - Echo showed EF 60%, grade I diastolic dysfunction, mod pulm HTN PAP 50-60mmHg - Continue IV heparin - Cardiology is following, Dr. Feldman, : - Acute kidney injury most likely from ATN/hypotension - Monitor renal function I&O and avoid for toxins. Sandoval. - Continue bicarb gtt- sterile water with 2 amps of bicarb at 150 mL an hour. -Renal and Urology following GI: - Protonix 40 mg IV daily for GI prophylaxis and start tube feeds with Nepro goal rate 40ml/hr ID: - Monitor for signs of infections(Fever and WBC) -Continue empiric abx Azactam and Flagyl HEME - Monitor CBC. coags - Continue IV heparin for bilateral DVT and probable PE Endo: - On stress dose steroids hydrocortisone 100 mg IV q8. - Sliding scale insulin with Accu-Chek q4 for glycemic control as the patient is on IV steroids. Proph: - GI prophylaxis with Protonix 40 mg daily and DVT prophylaxis with SCDs. continue IV Heparin Spoke to patient's this morning and updated her on patient's condition she was also agreeable for CT placement. Palliative care eval CCT 30 mins Ray Zhou MD Oct 06, 2016 09:31
--- NOTE | 2016-10-06 11:20 | PD.CONS ---
Consult Service Palliative Care Consult Requested By Dr. Zhou. Primary Care Physician Yeison Tripp MD Reason for Consultation a. To assist with evaluation and management of symptoms including: Shortness of breath. b. To assist medical decision maker(s) with: better understanding of current medical conditions; weighing benefits/burdens of medical treatment options; making medical treatment decisions. . HPI History of Present Illness Mr. Cutler is an 81-year-old male with medical history significant for prior [place] , ischemic CVA, sickle cell disease, hypertension, prostate and skin cancer. Patient arrived to the ED via EMS on 10/04/16 status post PEA arrest. As per medical records, patient's heard a sound in the bathroom and found patient on the bathroom floor unresponsive. EMS was subsequently called, patient was found on pulseless PEA arrest upon arrival. ACLS was started with ROSC after 1 dose of epinephrine. Patient was intubated in the field, no signs of trauma noted. Patient arrived to ED hypertensive status post 1 L of normal saline. He received another 2 L of normal saline and was started on epinephrine drip. Lower extremity ultrasound revealing DVT in the posterior tibial veins bilaterally and into distal left femoral vein. Head CT negative for acute process. Remote lacunar infarct noted bilaterally. Chest CT revealing multiple right anterior rib fractures with small to moderate pneumothorax. Right pigtail chest tube placed. Abdomen/pelvis CT revealing hydronephrosis with distended bladder likely bladder outlet obstruction, anasarca. EKG revealing atrial fibrillation with RVR, right bundle branch block with ST depression. Patient was admitted to CVICU for further management. Nephrology, Dr. Almaraz consulted on 10/04/16 secondary to elevated creatinine and hyperkalemia. Patient with acute kidney injury along with obstructive uropathy. Patient was continued on sodium bicarbonate drip. Neurology, Dr. Vines consulted for Sandoval catheter placement. Cardiology, Dr. Feldman consulted on 10/05/16. Echocardiogram revealing EF of 60%, diastolic dysfunction and moderate pulmonary hypertension. PEA arrest likely secondary to acute pulmonary embolism. Cardiac catheterization was not recommended. Patient remained on sedation since yesterday morning, over 24 hours. Remains encephalopathic, palliative care has been consulted for further clarifications of goals of care given poor prognosis for meaningful neurological recovery. Case discussed with Dr. Zhou. Patient undergoing EEG at this time, off sedation for over 24 hours. Has corneal reflexes. Remains on bicarbonate and heparin drip. A febrile, stable hemodynamically of vasopressors. Currently 50 % FiO2, oxygen saturation in the mid to high 90s. Patient not breathing over the vent. Chest x-ray this morning revealing large right-sided pneumothorax with extensive subcutaneous emphysema, pigtail catheter and subcutaneous tissue. Chest tube replaced this morning with resolution of pneumothorax. WBC trending down, 15.8, stable Hgb 8.6, platelet count 78. Renal function improving, creatinine 3.76 from 5.68 yesterday. Albumin 2.3. Reviewed past medical history and prior hospitalizations. History of acute ischemic left MCA stroke on January 2015. He was subsequently discharged home with home health after 6 days stay. Family meeting. In attendance patient's Candida Cutler, sons Rubén and Guillaume and [id number]. In this first meeting, reviewed the role of palliative care in advanced illness in regards to symptom management as well as support surrounding goals of care and advance care planning. Obtained patient' s past medical and psychosocial history. Reviewed events leading to this hospitalization, clinical course and current medical management. Patient's reported that patient was down on the floor for over 10 minutes prior to EMS arrival. Family with a very good understanding of patient's clinical condition and complications to include likely anoxic brain injury status post PEA arrest, acute kidney injury and respiratory failure. 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 Patient with history of CVA on January 2015, no major neurological deficit, however, progressive physical decline for the past 2 years. Patient being followed by neurology Dr. Godwin. Family requesting neurology consultation to evaluate overall prognosis for a meaningful neurological recovery. Patient's verbalized that if prognosis remains poor, family to transition patient to comfort-directed care/withdrawal life support given patient's known wishes against trach/PEG or long-term placement. Spiritual services offered and accepted. Anticipatory guidance provided regarding withdrawal of life support to include exhibits and medications pre, during and post withdrawal. Ongoing emotional support and active listening provided. Patient's family appreciative of my visit today. Case discussed with Dr. Zhou and bedside RN. . Function/Cognitive Trajectory Patient with history of CVA on January 2015, no major neurological deficit, however, progressive physical decline for the past 2 years. Patient requiring standby assistance with dressing and showers. Able to feed himself. Ambulated with walker. No cognitive decline reported. . Review of Systems ROS Limitations: Clinical Condition, Intubated, Unresponsive Constitutional: COMPLAINS OF: Weight loss, Generalized weakness, DENIES: Fever , Change in appetite, Pain Endocrine: DENIES: Heat/cold intolerance Eyes: COMPLAINS OF: Vision loss Ears, nose, mouth, throat: DENIES: Hearing loss, Nasal discharge, Hoarseness, Running Nose Respiratory: COMPLAINS OF: Apneas, DENIES: Cough, Sputum production Cardiovascular: DENIES: Dyspnea on Exertion, Lower Extremity Edema Gastrointestinal: DENIES: Nausea, Vomiting, Difficulty Swallowing Genitourinary: COMPLAINS OF: Urinary incontinence Integumentary: DENIES: Abnormal pigmentation Hematologic/Lymphatics: COMPLAINS OF: Bruising Immunologic/Allergic: DENIES: Eczema Neurologic: COMPLAINS OF: Seizures, DENIES: Localized weakness, Speech Problems, Poor Balance Psychiatric: DENIES: Anxiety, Confusion, Depression, Hallucinations Past Family Social History Coded Allergies: Penicillin (Verified Allergy, Severe, TONGUE SWELLING, GENERALIZED HIVES, 10/04/16) Past Medical History Ischemic CVA in January 2015 Sickle cell disease Hypertension Prostate cancer Melanoma CAD, prior NE Hyperlipidemia Sleep apnea . Past Surgical History Left endoscopic sinus surgery/soft tissue mass removal and biopsy on 10/20/15 Cholecystectomy Cataract surgery Melanoma removed from his face TURP . Reported Medications Prinivil (Lisinopril) 10 Mg Tab 10 Mg PO DAILY Levetiracetam 250 Mg Tab 1 Tab PO BID Savaysa (Edoxaban Tosylate) 60 Mg Tab 60 Mg PO DAILY Proscar (Finasteride) 5 Mg Tab 5 Mg PO DAILY Zocor 40 mg (Simvastatin) 40 Mg Tab 1 Tab PO HS Ocuvite 1 Tab (Vit A/Vit C/Vit E/Selen/Cu/Zn/Lutei) 1 Tab Tab 1 Tab PO DAILY . Current Medications Medications (Trade) Dose Ordered Sig/Bethany Route Start Time Stop Time Status Last Admin (Protonix Inj) 40 mg DAILY IV 10/04/16 17:00 10/06/16 08:30 Miscellaneous Information 1 Q361D XX 10/04/16 16:45 10/04/16 16:45 (Chlorhexidine 2% Cloth) 3 pack Taper DAILY@04 TOP 10/05/16 04:00 8/5/18 03:59 10/06/16 02:56 (Chlorhexidine 2% Cloth) 3 pack UNSCH PRN TOP 10/04/16 16:45 (Nena-Colace) 1 tab BID PO 10/04/16 21:00 10/06/16 08:30 (Milk Of Magnesia Liq) 30 ml Q12H PRN PO 10/04/16 16:45 (Senokot) 17.2 mg Q12H PRN PO 10/04/16 16:45 (Dulcolax Supp) 10 mg DAILY PRN RECTAL 10/04/16 16:45 (Lactulose Liq) 30 ml DAILY PRN PO 10/04/16 16:45 (D50w (Vial) Inj) 50 ml UNSCH PRN IV 10/04/16 16:45 (Glucagon Inj) 1 mg UNSCH PRN OTHER 10/04/16 16:45 (NovoLIN R SUPPLEMENTAL SCALE) 1 Q4H SQ 10/04/16 17:00 10/05/16 13:58 Hydrocortisone Sodium Succinate 100 mg 100 mg Q8H IV PUSH 10/04/16 17:00 10/06/16 08:30 Sodium Bicarbonate 100 meq/Sterile Water 950 ml @ 150 mls/hr Q6H20M IV 10/04/16 18:00 10/06/16 09:41 (fentaNYL DRIP) 250 ml @ 0 mls/hr TITRATE IV 10/04/16 17:00 Chlorhexidine Gluconate 15 ml 15 ml BID@08,20 MT 10/04/16 20:00 10/06/16 08:29 (Neosynephrine Inj/D5W 500 ml Inj) 500 ml @ 0 mls/hr TITRATE IV 10/04/16 18:30 Terbutaline Sulfate 1 mg 1 mg UNSCH PRN SQ 10/04/16 17:30 Heparin Sodium/ Dextrose 250 ml @ 0 mls/hr TITRATE IV 10/04/16 22:30 10/05/16 21:14 Metronidazole 100 ml @ 100 mls/hr Q8H IV 10/05/16 08:00 10/06/16 08:35 (Azactam Inj/NS Inj) 100 ml @ 200 mls/hr Q8H IV 10/05/16 10:00 10/06/16 09:41 Family History Mother with diabetes mellitus, father of old age. Brother with brain cancer. . Substance Use Tobacco: None. Alcohol: Social drinker. Prescription med abuse: None. Illicits: None. . Psychosocial History Patient originally from [place]. Moved to [place] 26 years ago. , has 5 children. 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 . Spiritual/Cultural Factors Sabianism corby. Living Will: Never completed Health Care Surrogate: Never completed Durable Power of Mandarin Speaking Nanny: Never completed Health Care Surrogate(s): No advance directives completed. As per [place] law, proxy decision maker falls to patient's Hue Cutler. . Family/friends goals: No code. Family likely to transition patient to comfort-directed care/ withdrawal life support given poor prognosis for a meaningful neurological recovery. Ethical and Legal Issues No ethical legal issues have been identified. . Physical Exam Vital Signs Date Time Temp Pulse Resp B/P Pulse Ox O2 Delivery O2 Flow Rate FiO2 10/06/16 07:58 18 10/06/16 07:43 99 50 10/06/16 07:00 100 10/06/16 07:00 98.4 96 18 136/81 98 10/06/16 07:00 30 10/06/16 04:18 95 30 10/06/16 03:00 99.7 97 18 132/78 97 10/06/16 03:00 107 10/06/16 03:00 30 10/06/16 00:58 92 30 10/05/16 23:00 100.3 104 18 132/78 96 10/05/16 23:00 103 10/05/16 23:00 30 10/05/16 21:58 96 30 10/05/16 20:08 97 30 10/05/16 19:00 99.7 88 14 145/88 94 10/05/16 19:00 98 10/05/16 19:00 30 10/05/16 15:57 98 30 10/05/16 15:00 97.7 84 18 135/82 98 10/05/16 15:00 30 10/05/16 15:00 100 10/05/16 11:00 97.7 92 23 127/82 98 10/05/16 11:00 100 10/05/16 11:00 30 10/05/16 11:00 97.7 92 23 127/82 98 10/05/16 11:00 30 10/05/16 11:00 100 10/05/16 10/06/16 19:00 07:00 Intake Total 2142 ml 1510 ml Output Total 2240 ml 817 ml Balance -98 ml 693 ml Intake IV Total 2142 ml 1480 ml Other 30 ml Output Urine Total 2220 ml 647 ml Gastric Drainage Total 20 ml 150 ml Chest Tube Drainage Total 0 ml 20 ml # Bowel Movements 1 1 Exam CONSTITUTIONAL/GENERAL: This is an adequately nourished patient, orally intubated on mechanical ventilation. TUBES/LINES/DRAINS: ETT, OG, right sided chest tube, Sandoval catheter, bilateral soft wrist restraints. SKIN: No jaundice, rashes, or lesions. Scatter large areas of ecchymoses on upper extremities. No wounds seen anteriorly. Skin temperature appropriate. Not diaphoretic. HEAD: Atraumatic. Normocephalic. EYES: Pupils equal and round and reactive, sluggish. Positive corneal reflex. No scleral icterus. No injection or drainage. ENT: Hearing grossly normal. Nose without bleeding or purulent drainage. Moist oral mucosa. NECK: Trachea midline. Supple. CARDIOVASCULAR: Regular rate and rhythm. No JVD. Peripheral pulses symmetric. RESPIRATORY/CHEST: Symmetric, unlabored respirations. Orally intubated on mechanical ventilation. Right sided inspiratory crackles, chest tube in place, small amount of serosanguineous output. GASTROINTESTINAL: Abdomen soft, round, nondistended. Bowel sounds present. GENITOURINARY: Without palpable bladder distension. Sandoval catheter in place. MUSCULOSKELETAL: Extremities without clubbing, cyanosis. Pitting edema to bilateral lower extremities, edema to upper extremities. NEUROLOGICAL: Off sedation. Opening eyes, not tracking. Not following commands. Withdraws bilaterally lower extremities to pain/stimuli. PSYCHIATRIC: Unable to assess secondary to clinical condition. . Diagnostic Tests Laboratory Laboratory Tests Test 10/04/16 10/04/16 10/04/16 10/04/16 14:45 14:55 16:33 16:40 Lactic Acid Level 5.9 mmol/L (0.4-2.0) Prothrombin Time 13.4 SEC (9.8-11.6) Prothromb Time International 1.2 RATIO Ratio Activated Partial 34.4 SEC Thromboplast Time (24.3-30.1) Sodium Level 146 MEQ/L (136-145) Potassium Level 4.7 MEQ/L (3.5-5.1) Chloride Level 112 MEQ/L (98-107) Carbon Dioxide Level 18.3 MEQ/L (21.0-32.0) Anion Gap 16 MEQ/L (5-15) Blood Urea Nitrogen 76 MG/DL (7-18) Creatinine 6.63 MG/DL (0.60-1.30) Estimat Glomerular Filtration 8 ML/MIN (>89) Rate Random Glucose 168 MG/DL (74-106) Calcium Level 8.0 MG/DL (8.5-10.1) Total Creatine Kinase 33 U/L (39-308) Troponin I 0.16 NG/ML (0.02-0.05) B-Type Natriuretic Peptide 313 PG/ML (0-100) Blood Type O POSITIVE Antibody Screen NEGATIVE Blood Gas Puncture Site RT RADIAL Blood Gas Patient Temperature 98.6 Blood Gas HCO3 14 mmol/L (22-26) Blood Gas Base Excess -11.5 mmol/L (-2-2) Blood Gas Oxygen Saturation 98 % (90-100) Arterial Blood pH 7.29 (7.380-7.420) Arterial Blood Partial 30 mmHg (38-42) Pressure CO2 Arterial Blood Partial 451 mmHG Pressure O2 (61-120) Arterial Blood Oxygen Content 12.2 Vol % (12.0-20.0) Arterial Blood 0.0 % (0-4) Carboxyhemoglobin Arterial Blood Methemoglobin 0.3 % (0-2) Blood Gas Hemoglobin 8.0 G/DL (12.0-16.0) Oxygen Delivery Device VENTILATOR Blood Gas Ventilator Setting AC,16,500,PEEP5 Blood Gas Inspired Oxygen 100 % White Blood Count 17.0 TH/MM3 (4.0-11.0) Red Blood Count 2.63 MIL/MM3 (4.50-5.90) Hemoglobin 8.2 GM/DL (13.0-17.0) Hematocrit 24.9 % (39.0-51.0) Mean Corpuscular Volume 94.4 FL (80.0-100.0) Mean Corpuscular Hemoglobin 31.3 PG (27.0-34.0) Mean Corpuscular Hemoglobin 33.1 % Concent (32.0-36.0) Red Cell Distribution Width 14.9 % (11.6-17.2) Platelet Count 99 TH/MM3 (150-450) Mean Platelet Volume 9.8 FL (7.0-11.0) Neutrophils (%) (Auto) 86.1 % (16.0-70.0) Lymphocytes (%) (Auto) 11.4 % (9.0-44.0) Monocytes (%) (Auto) 2.1 % (0.0-8.0) Eosinophils (%) (Auto) 0.3 % (0.0-4.0) Basophils (%) (Auto) 0.1 % (0.0-2.0) Neutrophils # (Auto) 14.6 TH/MM3 (1.8-7.7) Lymphocytes # (Auto) 1.9 TH/MM3 (1.0-4.8) Monocytes # (Auto) 0.4 TH/MM3 (0-0.9) Eosinophils # (Auto) 0.0 TH/MM3 (0-0.4) Basophils # (Auto) 0.0 TH/MM3 (0-0.2) CBC Comment AUTO DIFF Differential Total Cells 100 Counted Neutrophils % (Manual) 86 % (16-70) Band Neutrophils % 3 % (0-6) Lymphocytes % 9 % (9-44) Neutrophils # (Manual) 15.5 TH/MM3 (1.8-7.7) Metamyelocytes 2 % (0-1) Differential Comment FINAL DIFF MANUAL Platelet Estimate LOW (NORMAL) Platelet Morphology Comment NORMAL (NORMAL) Ovalocytes 1+ (NORMAL) Test 10/04/16 10/04/16 10/04/16 10/05/16 20:30 21:30 23:30 05:18 Sodium Level 144 MEQ/L 144 MEQ/L (136-145) (136-145) Potassium Level 4.4 MEQ/L 4.2 MEQ/L (3.5-5.1) (3.5-5.1) Chloride Level 112 MEQ/L 110 MEQ/L (98-107) (98-107) Carbon Dioxide Level 17.4 MEQ/L 19.3 MEQ/L (21.0-32.0) (21.0-32.0) Anion Gap 15 MEQ/L (5-15) 15 MEQ/L (5-15) Blood Urea Nitrogen 78 MG/DL (7-18) 77 MG/DL (7-18) Creatinine 5.98 MG/DL 5.68 MG/DL (0.60-1.30) (0.60-1.30) Estimat Glomerular Filtration 9 ML/MIN (>89) 10 ML/MIN (>89) Rate Random Glucose 222 MG/DL 200 MG/DL (74-106) (74-106) Lactic Acid Level 4.4 mmol/L (0.4-2.0) Calcium Level 7.6 MG/DL 7.6 MG/DL (8.5-10.1) (8.5-10.1) Troponin I 2.85 NG/ML (0.02-0.05) Blood Gas Puncture Site RT RADIAL Blood Gas Patient Temperature 98.6 Blood Gas HCO3 16 mmol/L (22-26) Blood Gas Base Excess -8.4 mmol/L (-2-2) Blood Gas Oxygen Saturation 96 % (90-100) Arterial Blood pH 7.35 (7.380-7.420) Arterial Blood Partial 30 mmHg (38-42) Pressure CO2 Arterial Blood Partial 149 mmHg Pressure O2 (61-120) Arterial Blood Oxygen Content 12.0 Vol % (12.0-20.0) Arterial Blood 1.2 % (0-4) Carboxyhemoglobin Arterial Blood Methemoglobin 1.5 % (0-2) Blood Gas Hemoglobin 8.7 G/DL (12.0-16.0) Oxygen Delivery Device VENTILATOR Blood Gas Ventilator Setting 500/18/PEEP 5 Blood Gas Inspired Oxygen 40 % White Blood Count 25.0 TH/MM3 14.5 TH/MM3 (4.0-11.0) (4.0-11.0) Red Blood Count 3.13 MIL/MM3 2.97 MIL/MM3 (4.50-5.90) (4.50-5.90) Hemoglobin 10.0 GM/DL 9.3 GM/DL (13.0-17.0) (13.0-17.0) Hematocrit 29.2 % 27.9 % (39.0-51.0) (39.0-51.0) Mean Corpuscular Volume 93.4 FL 94.0 FL (80.0-100.0) (80.0-100.0) Mean Corpuscular Hemoglobin 31.8 PG 31.2 PG (27.0-34.0) (27.0-34.0) Mean Corpuscular Hemoglobin 34.1 % 33.2 % Concent (32.0-36.0) (32.0-36.0) Red Cell Distribution Width 14.6 % 14.6 % (11.6-17.2) (11.6-17.2) Platelet Count 104 TH/MM3 83 TH/MM3 (150-450) (150-450) Mean Platelet Volume 9.7 FL 10.0 FL (7.0-11.0) (7.0-11.0) Prothrombin Time 13.0 SEC (9.8-11.6) Prothromb Time International 1.2 RATIO Ratio Activated Partial 32.7 SEC 67.7 SEC Thromboplast Time (24.3-30.1) (24.3-30.1) Nasal Screen MRSA (PCR) MRSA NOT DETECTED (NOT DETECT) Neutrophils (%) (Auto) 91.3 % (16.0-70.0) Lymphocytes (%) (Auto) 5.0 % (9.0-44.0) Monocytes (%) (Auto) 3.5 % (0.0-8.0) Eosinophils (%) (Auto) 0.0 % (0.0-4.0) Basophils (%) (Auto) 0.2 % (0.0-2.0) Neutrophils # (Auto) 13.2 TH/MM3 (1.8-7.7) Lymphocytes # (Auto) 0.7 TH/MM3 (1.0-4.8) Monocytes # (Auto) 0.5 TH/MM3 (0-0.9) Eosinophils # (Auto) 0.0 TH/MM3 (0-0.4) Basophils # (Auto) 0.0 TH/MM3 (0-0.2) CBC Comment AUTO DIFF Differential Comment AUTO DIFF CONFIRMED Platelet Estimate LOW (NORMAL) Platelet Morphology Comment NORMAL (NORMAL) Total Bilirubin 1.0 MG/DL (0.2-1.0) Aspartate Amino Transf 50 U/L (15-37) (AST/SGOT) Alanine Aminotransferase 29 U/L (12-78) (ALT/SGPT) Alkaline Phosphatase 138 U/L (45-117) Total Protein 5.7 GM/DL (6.4-8.2) Albumin 2.3 GM/DL (3.4-5.0) Test 10/05/16 10/05/16 10/05/16 10/06/16 08:15 15:47 18:51 04:36 Lactic Acid Level 2.1 mmol/L (0.4-2.0) Activated Partial 102.4 SEC 53.3 SEC 51.4 SEC Thromboplast Time (24.3-30.1) (24.3-30.1) (24.3-30.1) Test 10/06/16 06:31 White Blood Count 15.8 TH/MM3 (4.0-11.0) Red Blood Count 2.73 MIL/MM3 (4.50-5.90) Hemoglobin 8.6 GM/DL (13.0-17.0) Hematocrit 24.6 % (39.0-51.0) Mean Corpuscular Volume 90.1 FL (80.0-100.0) Mean Corpuscular Hemoglobin 31.5 PG (27.0-34.0) Mean Corpuscular Hemoglobin 35.0 % Concent (32.0-36.0) Red Cell Distribution Width 14.5 % (11.6-17.2) Platelet Count 78 TH/MM3 (150-450) Mean Platelet Volume 10.6 FL (7.0-11.0) Neutrophils (%) (Auto) 87.7 % (16.0-70.0) Lymphocytes (%) (Auto) 6.8 % (9.0-44.0) Monocytes (%) (Auto) 4.9 % (0.0-8.0) Eosinophils (%) (Auto) 0.2 % (0.0-4.0) Basophils (%) (Auto) 0.4 % (0.0-2.0) Neutrophils # (Auto) 13.8 TH/MM3 (1.8-7.7) Lymphocytes # (Auto) 1.1 TH/MM3 (1.0-4.8) Monocytes # (Auto) 0.8 TH/MM3 (0-0.9) Eosinophils # (Auto) 0.0 TH/MM3 (0-0.4) Basophils # (Auto) 0.1 TH/MM3 (0-0.2) CBC Comment AUTO DIFF Differential Total Cells 100 Counted Neutrophils % (Manual) 77 % (16-70) Band Neutrophils % 13 % (0-6) Lymphocytes % 3 % (9-44) Monocytes % 7 % (0-8) Neutrophils # (Manual) 14.2 TH/MM3 (1.8-7.7) Differential Comment FINAL DIFF MANUAL Platelet Estimate LOW (NORMAL) Platelet Morphology Comment NORMAL (NORMAL) Ovalocytes 1+ (NORMAL) Keratocytes OCC (NORMAL) Sodium Level 142 MEQ/L (136-145) Potassium Level 3.3 MEQ/L (3.5-5.1) Chloride Level 104 MEQ/L (98-107) Carbon Dioxide Level 27.3 MEQ/L (21.0-32.0) Anion Gap 11 MEQ/L (5-15) Blood Urea Nitrogen 72 MG/DL (7-18) Creatinine 3.76 MG/DL (0.60-1.30) Estimat Glomerular Filtration 16 ML/MIN (>89) Rate Random Glucose 118 MG/DL (74-106) Calcium Level 7.0 MG/DL (8.5-10.1) Protein Corrected Calcium 7.8 MG/DL (8.5-10.1) Total Protein 5.5 GM/DL (6.4-8.2) Result Diagram: 10/06/16 0631 10/06/16 0631 Microbiology Microbiology Date/Time Procedure Status Source Growth 10/04/16 14:50 Aerobic Blood Culture - Preliminary Resulted Blood Peripheral NO GROWTH IN 1 DAY 10/04/16 14:50 Anaerobic Blood Culture - Preliminary Resulted Blood Peripheral NO GROWTH IN 1 DAY 10/04/16 14:55 Aerobic Blood Culture - Preliminary Resulted Blood Peripheral NO GROWTH IN 1 DAY 10/04/16 14:55 Anaerobic Blood Culture - Preliminary Resulted Blood Peripheral NO GROWTH IN 1 DAY Imaging Last Impressions Chest X-Ray 10/06/16 0000 Signed Impressions: Service Date/Time: September 07:35 - CONCLUSION: Right thoracostomy tube placement with resolution of pneumothorax Rubén Sheriff MD Lower Extremity Ultrasound 10/04/16 0000 Signed Impressions: Service Date/Time: Tuesday, October 04, 2016 20:23 - CONCLUSION: 1. Positive for deep venous thrombosis in the posterior tibial veins bilaterally and in the distal left femoral vein. Yemi Resendiz MD Head CT 10/04/16 Signed Impressions: Service Date/Time: Tuesday, October 04, 2016 17:40 - CONCLUSION: 1. No acute findings. Remote lacunar infarcts again noted bilaterally. Postoperative sinus surgery. Yemi Resendiz MD Chest CT 10/04/16 0000 Signed Impressions: Service Date/Time: Tuesday, October 04, 2016 17:43 - CONCLUSION: 1. Multiple right anterior rib fractures with small to moderate right pneumothorax. Endotracheal tube, nasogastric tube and right [id number] in satisfactory position. 2. Moderate to severe coronary calcifications. 3. Upper abdomen reveals some mild hydronephrosis. Mild anasarca. Yemi Resendiz MD Abdomen/Pelvis CT 10/04/16 0000 Signed Impressions: Service Date/Time: Tuesday, October 04, 2016 17:45 - CONCLUSION: 1. Multiple right-sided rib fractures with small to moderate right pneumothorax. 2. Hydronephrosis with distended bladder likely bladder outlet obstruction. 3. Anasarca. Yemi Resendiz MD Procedures * 10/04/16 -endotracheal intubation * 10/04/16 -right-sided chest tube placement * 10/06/16 -right-sided chest tube placement . Patient/Family Conference Present at Family Conference: Patient's Candida, sons Rubén and Guillaume and [id number]. Family Conference Time (mins): 38 Family Conference Location: Bedside Issues Discussed: * Palliative care role, purpose, approach * Additional medical, psychosocial, and spiritual history * Patients general health, functional status, and cognitive changes in the months leading up to the current hospitalization * Family understanding of the current medical problems -encephalopathy, likely anoxic. Respiratory failure, renal failure. * Family understanding of prognosis -poor prognosis for meaningful neurological recovery. * Patients goals of care as best understood from advance directives and/or conversations and/or values * Current medical treatment options and benefits/burdens of those options * Likely scenarios comparing ongoing aggressive care with a transition to comfort measures only * Questions answered to the best of my ability * Palliative care contact information provided * Risks, benefits and limitations of CPR given patient's condition & poor prognosis . Assessment and Plan Disease Oriented Problem List: (1) Cardiac arrest (2) Encephalopathy (3) Acute kidney injury (4) Pneumothorax, right (5) Metabolic acidosis (6) DVT, lower extremity (7) HTN (hypertension) Symptom Scale: (1) Shortness of breath 0-10 Scale: Unable to quantify Comment: Remains orally intubated on mechanical ventilation. Pertinent Non-Medical Issues Psychosocial: Patient originally from [place]. Moved to [place] 26 years ago. , has 5 children. 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 Spiritual: Sabianism corby. Legal: No advance directives completed. Ethical issues impacting care: No ethical issues identified. . Important Contacts Candida Cutler . Prognosis Mr. Cutler is an 81-year-old male with medical history significant for prior [place] , ischemic CVA, sickle cell disease, hypertension, prostate and skin cancer. Patient arrived to the ED via EMS on 10/04/16 status post PEA arrest. Clinical course further complicated by persistent encephalopathy, likely anoxic, acute kidney injury and respiratory failure. Patient's overall prognosis is very poor for a meaningful neurological recovery. Code Status: No Code Plan * CODE STATUS: No code. DNR. * HEALTHCARE DECISION-MAKING: Patient incapacitated for medical decision-making secondary to clinical condition, encephalopathic on vent support. No advance directives completed. In the absence of AD and as per [place] law, healthcare proxy decision making falls to patient's , Candida Cutler. * GOALS OF CARE: Family likely to transition patient to comfort-directed care/ withdrawal life support given poor prognosis for a meaningful neurological recovery. Pending neurology consult with Dr. Godwin -patient known to neuro. * Anticipatory guidance provided to family regarding withdrawal life support process and documentation required. Exhibits C signed and placed in chart. * SYMPTOMS: = Shortness of breath, secondary to respiratory failure. Remains intubated on mechanical ventilation. = Encephalopathy, likely secondary to anoxia. Pending EEG. CT of the brain negative for acute finding. Patient off sedation for over 24 hours, remains encephalopathic. * Case discussed with Dr. Zhou and bedside RN. * Spiritual services offered and accepted. Referral made. * Ongoing emotional support and active listening provided to patient's and family. * Palliative care contact information has been provided to patient's family. * Palliative care will continue to follow-up for further clarifications of goals of care and emotional support as patient's clinical course continues to evolve. . Time Spent Total Floor Time (mins): 68 (Total time to include review and summarization of available medical records to include prior hospitalizations, physical exam, bedside goals of care conversation with patient's family, case discussion with Dr. Zhou and bedside RN.) >50% Counseling/Coord of Care: Yes Thank you for the opportunity to participate in the care of Mr. Cutler. Attestation To help prompt me to consider important information that might be impacting today's encounter and assessment, information from prior notes written by myself or my colleagues may have been "brought forward" into today's note. My signature on this note, however, is an attestation that I personally performed the exam, history, and/or decision-making noted today, and, unless otherwise indicated, the interactions with patient, family, and staff as well as the review of records all occurred today. I also attest that the listed assessment and stated plan reflect my best clinical judgment today based on the combination of historical information, prior notes, and today's exam/ interactions. When time spent is documented, it refers only to time spent today by the signer, or if indicated, combined time spent today by collaborating physician/nurse practitioner. Lou Short Oct 06, 2016 11:19
[2016-10-06] MEDS: levETIRAcetam INJ 500 MG in SODIUM CHLORIDE 0.9% INJ 100 ML IV SCH ×2 (12:55→22:16)
[2016-10-06] MEDS ORDERED: FOSPHENYTOIN SODIUM 500 MG PE/10 ML VIAL IM ONE (17:15)
--- NOTE | 2016-10-06 17:40 | MB ---
cc: GONZALO SPRING M.D. DATE OF CONSULTATION: 10/06/2016. REASON FOR CONSULTATION: I have been asked to see him for mental status change and abnormal EEG. HISTORY OF PRESENT ILLNESS: 81-year-old man who had seen Dr. Godwin in January of 2015 and was not speaking properly. He had some difficulty speaking back at that time. CT showed bilateral old infarcts. He was given tPA. MRI of the brain at that time showed no new infarct. He has had bilateral infarcts in the past, more in the central head region. He was now admitted two days ago with a history of sinus cancer status post radiation therapy, status post PEA arrest. He was hurt in the bathroom, found on the floor, unresponsive. He was pulseless in PEA arrest. He was intubated in the field. He was hypotensive even after one liter of normal saline. He was found to have a BUN of 76 with creatinine of 6.6. ABG was 7.29, 30, pA02 of 451 after intubation. EKG showed atrial fibrillation. He was found to have a PE and some DVT. PAST MEDICAL HISTORY: 1. Melanoma in the face. 2. Prostate cancer. 3. Myocardial infarction. 4. Borderline diabetes. 5. Hypertension. 6. TIA. 7. Sleep apnea, not wearing C-PAP. 8. Myocardial infarction in 1995. ALLERGIES: PENICILLIN. HOME MEDICATIONS: It is unclear what home medications he was on. MEDICATIONS: 1. Keppra 500 milligrams q. 12. 2. Aztreonam. 3. Metronidazole. 4. IV heparin. 5. Colace. 6. Steroids. 7. He has evidently been off sedatives for about a day and a half according to the nursing staff. PHYSICAL EXAMINATION: VITAL SIGNS: He is not on pressors. 99 is his T-max. Afebrile. 150/91. 18. 90. NEUROLOGICAL EXAMINATION: He is intubated. Pupils are equal. At some rapid blinking movements are seen of the eyes. Eyes were a little deviated over to the right. Nasal stimulation has a normal reaction bilaterally. He is flaccid throughout. Toes appear to be upgoing bilaterally. DTRs are absent. LABS: White count is 16,000, hematocrit 24, platelet count 78,000 and that has come down a bit. Sedimentation rate was normal back in 2014 as was an WINSOME. He was evidently on dilantin for a brief time back in 2014. His BUN is 72, creatinine is down to 3.76. Liver function tests are normal. Troponin is 2.9. Albumin 2.3. TSH normal. B12 and LDL have been normal in the past. IMAGING STUDIES: CT scan of the brain shows old bilateral infarcts. IMPRESSION: Encephalopathy. Evidently he has had some improvement and in the fact that he has fairly good response to bilateral nasal stimulation bodes better for his prognosis. I will have to review his EEG; the official interpretation is pending. I will be following him with you in the hospital. At this point, since he has had some neurological improvement, favor waiting a few more days and see if that continues before withdrawal of life support. MD RAÚL Bess/ARASELI /5:08 PM /5:23 PM
[2016-10-06] MEDS ORDERED: FOSPHENYTOIN INJ 1,000 MGPE in SODIUM CHLORIDE 0.9% INJ 50 ML IV ONE (18:00)
[2016-10-06] MEDS: AZTREONAM INJ 1,000 MG in SODIUM CHLORIDE 0.9% INJ 100 ML IV SCH (18:56)
--- NOTE | 2016-10-06 19:24 | HHI.NPPN ---
Subjective History of Present Illness 81-year-old male with a past medical history of prostate cancer, history of cerebrovascular accident, hypertension, hyperlipidemia, mild chronic kidney disease, history of melanoma of the skin, who was brought to the hospital post cardiac arrest. I was called to see the patient because of a very high BUN and creatinine and high potassium level. Additional Remarks Patient remain intubated and remain unresponsive. Objective Data Data 10/05/16 10/06/16 19:00 07:00 Intake Total 2142 ml 1510 ml Output Total 2240 ml 817 ml Balance -98 ml 693 ml Intake IV Total 2142 ml 1480 ml Other 30 ml Output Urine Total 2220 ml 647 ml Gastric Drainage Total 20 ml 150 ml Chest Tube Drainage Total 0 ml 20 ml # Bowel Movements 1 1 Vital Signs Date Time Temp Pulse Resp B/P Pulse Ox O2 Delivery O2 Flow Rate FiO2 10/06/16 17:16 98 50 10/06/16 15:00 98.7 82 18 146/85 99 10/06/16 15:00 80 10/06/16 15:00 30 10/06/16 12:22 99 50 10/06/16 11:00 99.2 97 18 150/91 99 10/06/16 11:00 90 10/06/16 11:00 30 10/06/16 07:58 18 10/06/16 07:43 99 50 10/06/16 07:00 100 10/06/16 07:00 98.4 96 18 136/81 98 10/06/16 07:00 30 10/06/16 04:18 95 30 10/06/16 03:00 99.7 97 18 132/78 97 10/06/16 03:00 107 10/06/16 03:00 30 10/06/16 00:58 92 30 10/05/16 23:00 100.3 104 18 132/78 96 10/05/16 23:00 103 10/05/16 23:00 30 10/05/16 21:58 96 30 10/05/16 20:08 97 30 -: 10/06/16 0631 10/06/16 0631 Physical Exam General Appearance Remarks Intubated and off sedation. Eyes Eye Exam: Pupils Equal Throat Throat Exam: Oral Mucosa [place] & Moist Neck Neck Exam: Neck Supple Pulmonary Resp Exam: No Distress, Rhonchi, Decreased Bases, Diminished Breath Sounds, Poor Inspiratory Effort Cardiology CV Exam: Regular, Normal Sinus Rhythm Gastrointestinal/Abdomen GI Exam: Soft, Non-Tender, Bowel Sounds Present Extremeties Extremities Exam: Trace Edema Neurologic Neuro Exam: Obtunded, Unresponsive Assessment/Plan Assessment Summary: INDU/Acute Renal Failure Electrolyte Assessment: Hyperkalemia, Metabolic Acidosis Problem List: (1) Encephalopathy (2) HTN (hypertension) (3) Chronic ischemic multifocal anterior circulation stroke (4) Metabolic acidosis (5) Hyperkalemia (6) Acute kidney injury Plan Patient was seen by urology, has ureteral dilatation and Sandoval's inserted at bed side. Has almost 2 liters of dark urine came out. BP is stable, off sedation. Urine out put is good. Creatinine has been improving. Continue IVF. Problem Qualifiers (1) HTN (hypertension): Qualified Code: I10 - Essential hypertension Steven Almaraz MD Oct 06, 2016 19:24
--- NOTE | 2016-10-06 21:24 | MG ---
cc: STEPHON SHEN M.D. Lab No: Date: 10/06/16 Age: 81 Sex: M Race: REFERRING PHYSICIAN Dr. Zhou An EEG was obtained on this 81-year-old patient being evaluated for decreased responsiveness. The patient is intubated, off sedation and status post apparent arrest. The EEG is showing generalized slowing with intermixed triphasic sharp discharge maximum frontally. Initially, these discharges are seen repeating nearly every half to 1 second. There are low amplitude beta rhythms and delta activity along with theta activity bilaterally. There is artifact and photic stimulation disclosed, no significant change. INTERPRETATION Abnormal EEG because of generalized slowing, bilateral triphasic sharp discharges possibly left more than right. The findings suggest a moderate to severe diffuse disturbance of cerebral function. There is questionable lateralizing feature of these triphasic discharge to the left. This triphasic discharges are probably metabolic or from hypoxic injury rather than from epileptiform type of abnormality. Stephon Shen MD OFC/EO /8:49 PM /9:11 PM
[2016-10-07] VITALS (11 sets, daily range): BP systolic 114–122; BP diastolic 54–67; PULSE 69–94; RESP 18–22; TEMP 98.5–100.8; O2SAT 94–97
[2016-10-07] MEDS: RESP: ALBUTEROL 2.5 MG/IPRATROPIUM 0.5 MG NEB (SCH) INH ×4 (00:46→13:41)
[2016-10-07] MEDS: metroNIDAZOLE 500 MG INJ 100 ML IV SCH ×2 (00:48→08:40)
[2016-10-07] MEDS: AZTREONAM INJ 1,000 MG in SODIUM CHLORIDE 0.9% INJ 100 ML IV SCH ×2 (00:51→08:39)
[2016-10-07] MEDS: HYDROCORTISONE SOD SUCCINATE 100 MG VIAL IV PUSH SCH ×2 (00:51→08:38)
[2016-10-07] MEDS: INSULIN NovoLIN REGULAR SUPPLEMENTAL SCALE SQ SCH ×3 (01:00→10:14)
[2016-10-07] MEDS: CHLORHEXIDINE GLUCONATE 2 % 1 PACK (2 CLOTHS) TOP SCH (04:00)
[2016-10-07] MEDS: SODIUM BICARBONATE 8.4% INJ 100 MEQ in WATER STERILE FOR INJ 850 ML IV SCH (04:53)
[2016-10-07] MEDS: HEPARIN-D5W INJ 250 ML IV SCH (05:27)
[2016-10-07 05:54] LABS: AUTOMATED NEUTROPHIL # 12.6 TH/MM3 (1.8-7.7); BASOPHIL % 0.1 % (0.0-2.0); LYMPH % 6.4 % (9.0-44.0); LYMPHOCYTE # 0.9 TH/MM3 (1.0-4.8); MEAN CELL VOLUME 89.4 FL (80.0-100.0); MEAN CORPUSCULAR HEMOGLOBIN 30.9 PG (27.0-34.0); MEAN CORPUSCULAR HGB CONC 34.6 % (32.0-36.0); MONO % 3.7 % (0.0-8.0); NEUT % 89.8 % (16.0-70.0); PLATELET COUNT 85 TH/MM3 (150-450); RED BLOOD COUNT 2.58 MIL/MM3 (4.50-5.90); RED CELL DISTRIBUTION WIDTH 14.3 % (11.6-17.2); WHITE BLOOD COUNT 14.1 TH/MM3 (4.0-11.0)
[2016-10-07] MEDS: FOSPHENYTOIN INJ 100 MGPE in SODIUM CHLORIDE 0.9% INJ 50 ML IV SCH ×2 (05:54→14:00)
[2016-10-07 05:57] LABS: HEMO FLAGS DIFF FINAL
[2016-10-07] MEDS ORDERED: FOSPHENYTOIN SODIUM 100 MG PE/2 ML VIAL IV SCH (06:00)
[2016-10-07 06:09] LABS: APTT (PATIENT) 49.9 SEC (24.3-30.1)
[2016-10-07 06:19] LABS: BICARBONATE 36.7 MEQ/L (21.0-32.0); CALCIUM-PROTEIN CORRECTED 7.5 MG/DL (8.5-10.1); TOTAL BILIRUBIN ADULT 0.5 MG/DL (0.2-1.0)
[2016-10-07 06:23] LABS: POTASSIUM 2.3 MEQ/L (3.5-5.1)
--- NOTE | 2016-10-07 07:40 | HHI.CCPN ---
Subjective Remarks/Hospital Course The patient is an 81 year-old male with a past medical history of prostate cancer, melanoma of the skin, CVA, hypertension, hyperlipidemia, who presented to [facility] ED status post PEA arrest. The patient's stated that she heard a sound in the bathroom and she found him on the floor unresponsive after he hit his head. She called [facility] and when they arrived the patient was pulseless and in PEA arrest. ACLS protocol was initiated. After one round of epi, the patient regained spontaneous circulation. He was intubated in the field by [facility]. Also he was found to be hypotensive and he was given one liter bolus of normal saline by [facility] and the patient received additional two liters of IV fluids in the ER and started on epinephrine drip. He has a port in the right chest for chemotherapy and is being followed by Dr. Rincon, oncologist, from [facility]. When he arrived to the ER, he was tachycardiac with heart rate of 112, hypotensive, with a systolic blood pressure 60s to 70s. His laboratory data showed acute renal failure with a BUN of 76, creatinine 6.63, lactic acidemia with lactic acid level of 5.9. ABG post intubation showed severe metabolic acidosis with a pH of 7.29, CO2 30, pAO2 451, bicarb at 14, saturation 98% on assist control ventilation, rate of 16 , tidal volume 500, PEEP of 5, 100% FIO2. His INR is 1.2 with a PT 13.4. EKG in the ER showed atrial fibrillation with rapid ventricular response at a rate of 107 beats per minute, right bundle-branch block, and ST depression. Dr. Feldman from cardiology service was notified and no plans for immediate cardiac catheterization at this time. Chest x-ray showed mild cardiomegaly otherwise no focal infiltrates. The rest of the ED workup is in progress. His CBC is pending. In addition, the patient is scheduled to undergo CT scan of the brain , CT of the abdomen and pelvis and CT thorax without contrast. He has a troponin measured at 0.16 with total CK of 33 and BMP of 313. SUBJ 10/05/16: Venous duplex shows evidence of bilateral lower extremity DVT. Cardiac arrest seems to be secondary to acute PE most likely. Therapeutic on IV heparin. Coming off pressors. 2-D echo is pending. Patient is currently on 50 g per hour of fentanyl remains encephalopathy. Chest x-ray no pneumothorax 10/06 Patient remains intubated found to have sub Q emphysema and STAT CXR showed large right sided PTX and right pigtail catheter was in sub Q tissue, 28Fr CT was placed with post CXR showed resolution of PTX. Renal function is improving with Cr: 3.76 today from 5.68. 10/07 Patient remains intubated off sedation unresponsive. Afebrile. For possible withdrawal care today. Objective Vital Signs Date Time Temp Pulse Resp B/P Pulse Ox O2 Delivery O2 Flow Rate FiO2 10/07/16 03:37 94 50 10/07/16 03:00 94 10/07/16 03:00 98.5 20 117/65 10/04/16 16:23 Ventilator Intake and Output 10/06/16 10/06/16 10/06/16 07:59 15:59 23:59 Intake Total 1510 ml 3970 ml Output Total 817 ml 1245 ml Balance 693 ml 2725 ml Result Diagram: 10/07/16 0442 10/07/16 0442 Other Results Laboratory Tests Test 10/07/16 04:42 White Blood Count 14.1 TH/MM3 Red Blood Count 2.58 MIL/MM3 Hemoglobin 8.0 GM/DL Hematocrit 23.0 % Mean Corpuscular Volume 89.4 FL Mean Corpuscular Hemoglobin 30.9 PG Mean Corpuscular Hemoglobin 34.6 % Concent Red Cell Distribution Width 14.3 % Platelet Count 85 TH/MM3 Mean Platelet Volume 10.5 FL Neutrophils (%) (Auto) 89.8 % Lymphocytes (%) (Auto) 6.4 % Monocytes (%) (Auto) 3.7 % Eosinophils (%) (Auto) 0.0 % Basophils (%) (Auto) 0.1 % Neutrophils # (Auto) 12.6 TH/MM3 Lymphocytes # (Auto) 0.9 TH/MM3 Monocytes # (Auto) 0.5 TH/MM3 Eosinophils # (Auto) 0.0 TH/MM3 Basophils # (Auto) 0.0 TH/MM3 CBC Comment DIFF FINAL Differential Comment Activated Partial 49.9 SEC Thromboplast Time Sodium Level 144 MEQ/L Potassium Level 2.3 MEQ/L Chloride Level 99 MEQ/L Carbon Dioxide Level 36.7 MEQ/L Anion Gap 8 MEQ/L Blood Urea Nitrogen 55 MG/DL Creatinine 2.28 MG/DL Estimat Glomerular Filtration 28 ML/MIN Rate Random Glucose 154 MG/DL Calcium Level 6.4 MG/DL Protein Corrected Calcium 7.5 MG/DL Total Bilirubin 0.5 MG/DL Aspartate Amino Transf 35 U/L (AST/SGOT) Alanine Aminotransferase 19 U/L (ALT/SGPT) Alkaline Phosphatase 84 U/L Total Protein 4.8 GM/DL Albumin 1.7 GM/DL Phenytoin (Dilantin) Level 7.6 MCG/ML Imaging Last Impressions Chest X-Ray 10/06/16 0000 Signed Impressions: Service Date/Time: September 07:35 - CONCLUSION: Right thoracostomy tube placement with resolution of pneumothorax Rubén Sheriff MD Lower Extremity Ultrasound 10/04/16 0000 Signed Impressions: Service Date/Time: Tuesday, October 04, 2016 20:23 - CONCLUSION: 1. Positive for deep venous thrombosis in the posterior tibial veins bilaterally and in the distal left femoral vein. Yemi Resendiz MD Head CT 10/04/16 0000 Signed Impressions: Service Date/Time: Tuesday, October 04, 2016 17:40 - CONCLUSION: 1. No acute findings. Remote lacunar infarcts again noted bilaterally. Postoperative sinus surgery. Yemi Resendiz MD Chest CT 10/04/16 0000 Signed Impressions: Service Date/Time: Tuesday, October 04, 2016 17:43 - CONCLUSION: 1. Multiple right anterior rib fractures with small to moderate right pneumothorax. Endotracheal tube, nasogastric tube and right [id number] in satisfactory position. 2. Moderate to severe coronary calcifications. 3. Upper abdomen reveals some mild hydronephrosis. Mild anasarca. Yemi Resendiz MD Abdomen/Pelvis CT 10/04/16 0000 Signed Impressions: Service Date/Time: Tuesday, October 04, 2016 17:45 - CONCLUSION: 1. Multiple right-sided rib fractures with small to moderate right pneumothorax. 2. Hydronephrosis with distended bladder likely bladder outlet obstruction. 3. Anasarca. Yemi Resendiz MD Objective Remarks The patient is an 81 year-old male, status post PEA arrest. Now intubated sedated with fentanyl at 50 g per hour HEENT: Atraumatic, normocephalic. Pupils equal, round and reactive to light. Corneal reflex+. Orotracheally intubated NECK: Supple. No JVD, adenopathy or thyromegaly. Trachea midline. CARDIOVASCULAR: Tachycardiac. Normal S1-S2. No murmurs, rubs, or gallops noted. Off all pressors at this time PULMONARY: Bilateral equal entry. No rales or wheezing. ABDOMEN: Soft, nontender. No distension. Positive bowel sounds. EXTREMITIES: No cyanosis or clubbing, 2+ edema. NEUROLOGIC: Opens eyes to noxious stimuli. DAMION. Positive corneal reflex. Withdraws bilateral lower extremities to pain. A/P Assessment and Plan IMPRESSION Status post cardiopulmonary PEA arrest. Probable acute pulmonary embolism Bilateral DVT lower extremity Lactic acidemia Acute renal failure. Acute respiratory failure. Acute encephalopathy Right pneumothorax status post chest tube placement Multiple right anterior rib fractures Mild elevation in troponins. Anion gap metabolic acidosis secondary to lactic acidemia and renal failure. History of CVA. History of coronary artery disease. History of hypertension Hyperlipidemia. History of prostate cancer. History of melanoma. RECOMMENDATIONS Neuro: - Off sedation monitor neuro status and avoid sedatives - CT brain negative for acute findings - Neuro is following-continue with Keppra, Cerebyx 100mg IV Q8 - EEG: Generalized slowing, b/l triphasic discharges probably metabolic, hypoxic injury Resp: - Continue with vent support and maintain sats above 92%. - Bronchodilator in the form of DuoNeb q6. ICU vent bundle. - Right chest tube 28Fr placed 10/06 for pneumothorax now resolved - On IV heparin - Venous ultrasound shows bilateral DVT, therapeutic on heparin - PEA seems to be secondary to acute pulmonary embolism CVS: -Monitor HR and BP keep MAP>65mmhg - Shock now resolving, trend lactic acid ( trending down) - PEA arrest most likely from PE. - Echo showed EF 60%, grade I diastolic dysfunction, mod pulm HTN PAP 50-60mmHg - Continue IV heparin - Cardiology is following, Dr. Feldman, : - Acute kidney injury most likely from ATN/hypotension - Monitor renal function I&O and avoid for toxins. Sandoval. - d/c bicarb drip, K replacement today -Renal and Urology following GI: - Protonix 40 mg IV daily for GI prophylaxis. -On tube feeds with Nepro @ 40ml/hr ID: - Monitor for signs of infections(Fever and WBC) -Continue empiric abx Azactam and Flagyl HEME - Monitor CBC. coags - Continue IV heparin for bilateral DVT and probable PE Endo: - On stress dose steroids hydrocortisone 100 mg IV q8. - Sliding scale insulin with Accu-Chek q4 for glycemic control as the patient is on IV steroids. Proph: - GI prophylaxis with Protonix 40 mg daily and DVT prophylaxis with SCDs. continue IV Heparin Palliative care is following for possible withdrawal care today. Poor prognosis given multiorgan injury ( resp failure, renal failure, s/p PEA arrest and hypoxic encephalopathy) CCT 30 mins Ray Zhou MD Oct 07, 2016 07:40
--- NOTE | 2016-10-07 08:22 | HHI.PR ---
Objective Vital Signs Date Time Temp Pulse Resp B/P Pulse Ox O2 Delivery O2 Flow Rate FiO2 10/07/16 03:37 94 50 10/07/16 03:00 50 10/07/16 03:00 94 10/07/16 03:00 98.5 94 20 117/65 94 10/07/16 00:47 94 50 10/06/16 23:15 95 50 10/06/16 23:00 50 10/06/16 23:00 98.7 91 18 129/78 94 10/06/16 23:00 97 10/06/16 21:09 97 50 10/06/16 19:00 97 10/06/16 19:00 50 10/06/16 19:00 98.5 91 18 129/78 97 10/06/16 17:16 98 50 10/06/16 15:00 98.7 82 18 146/85 99 10/06/16 15:00 80 10/06/16 15:00 30 10/06/16 12:22 99 50 10/06/16 11:00 99.2 97 18 150/91 99 10/06/16 11:00 90 10/06/16 11:00 30 I/O 10/06/16 10/06/16 10/06/16 10/07/16 10/07/16 10/07/16 07:00 15:00 23:00 07:00 15:00 23:00 Intake Total 1510 ml 3970 ml 1637 ml Output Total 817 ml 1245 ml 1775 ml Balance 693 ml 2725 ml -138 ml Intake IV Total 1480 ml 3940 ml 1257 ml Tube Feeding 30 ml 380 ml Other 30 ml Output Urine Total 647 ml 1220 ml 1525 ml Gastric Drainage Total 150 ml 25 ml Chest Tube Drainage Total 20 ml 0 ml 250 ml # Bowel Movements 1 0 0 Result Diagram: 10/07/162 10/07/16 044 Objective Remarks seems less responsive to nasal stim right now Assessment and Plan Assessment and Plan imp i looked at eeg not burst supressiona nd a nice 7 hz backround goes against major anoxic injury bilat temp sharps some spikes recheck and free dil in about 14 and on keppra no sedatives see how looks over weekend fu mri neuro will fu Yeison Fong MD Oct 07, 2016 08:22
[2016-10-07] MEDS: DOCUSATE SODIUM 50 MG/SENNA 8.6 MG TAB PO SCH (08:37)
[2016-10-07] MEDS: POTASSIUM CHLORIDE INJ 30 MEQ in SODIUM CHLORIDE 0.9% INJ 100 ML IV-CENTRAL SCH ×2 (08:38→12:00)
[2016-10-07] MEDS: PANTOPRAZOLE SODIUM 40 MG VIAL IV SCH (08:38)
[2016-10-07] MEDS: levETIRAcetam INJ 500 MG in SODIUM CHLORIDE 0.9% INJ 100 ML IV SCH (08:39)
--- NOTE | 2016-10-07 14:00 | HHI.HCPN ---
Reason for visit a. To assist with evaluation and management of symptoms including: Shortness of breath. b. To assist medical decision maker(s) with: better understanding of current medical conditions; weighing benefits/burdens of medical treatment options; making medical treatment decisions. . Subjective/Interval History Mr. Cutler is an 81-year-old male with medical history significant for prior NV , ischemic CVA, sickle cell disease, hypertension, prostate and skin cancer. Patient arrived to the ED via EMS on 10/04/16 status post PEA arrest. Chest CT revealing multiple right anterior rib fractures with small to moderate pneumothorax. Right pigtail chest tube placed. Patient was admitted to CVICU for further management. Palliative care has been consulted for further clarifications of goals of care. Patient seen in CVICU. Remains encephalopathic off sedation. Unresponsive to verbal or tactile stimuli. No purposeful movement noted. Patient evaluated by neurology, Dr. Fong's yesterday. EEG revealing generalized slowing, b/l triphasic discharges probably metabolic, hypoxic injury. Patient remains ventilator support, 40% FiO2. Stable hemodynamically. Max temperature 100.8 today. Laboratory workup today revealing WBC 14.1, Hgb 8.0, platelet count 85. No new imaging for review. Met with patient's Candida Cutler and son Rubén. Medical update provided. Reviewed with family recommendations made by Dr. Hookre favoring a few more days to evaluate patient's neurological condition. Patient's and son verbalized being concerned with patient's overall prognosis given advanced age, multiple chronic ongoing comorbidities, baseline debilitated state, status post PEA arrest and multiple fracture ribs which by itself represent a poor overall prognosis in a patient his age. Patient's verbalized that patient's quality of life is her family's main priority. family reports that patient has been very vocal in the past against long-term placement/dependent on others for care, tracheostomy or PEG tube. Family feels that if patient is unable to return to his cognitive and physical baseline and independently participate in activities of daily living, patient would favor withdrawal of life support. Family requesting to discuss case with Dr. Godwin, who knows patient from outpatient neuro care. Family receptive to continue goals of care discussion. Case discussed with Dr. Zhou. Case discussed with Dr. Godwin by Dr. Zhou at family's request. Family's contact information has been provided. Case discussed with bedside RN Susana. 16:35. After further discussion with neurology Dr. Godwin and while taking into consideration Dr. Fong's recommendations, family has elected to transition patient to comfort-directed care/withdrawal life support given poor overall prognosis for a meaningful recovery and patient's known wishes. Exhibits B&C sign, anticipatory guidance provided to family. Discussed hospice referral tomorrow morning should patient survives the night. Family receptive to this. public health informatician present for last rites. Family verbalized much appreciation for the care provided to patient. Ongoing emotional support and active listening provided. . Family/friend interactions See interval note. . Advance Directives Living Will: Never completed Health Care Surrogate: Never completed Durable Power of Bag Bailer: Never completed Advance Directive Specifics Health Care Surrogate(s): No advance directives completed. As per [place] law, proxy decision maker falls to patient's Hue Cutler. . Significant change in goals: No code. Transition patient to comfortdirected care/withdrawal life support. Objective Vital Signs Date Time Temp Pulse Resp B/P Pulse Ox O2 Delivery O2 Flow Rate FiO2 10/07/16 11:41 40 10/07/16 11:40 92 10/07/16 11:33 100.8 80 22 114/54 95 10/07/16 10:57 90 10/07/16 09:44 45 10/07/16 08:26 97 45 10/07/16 08:10 100.5 87 18 114/58 97 10/07/16 08:10 88 10/07/16 08:10 50 10/07/16 03:37 94 50 10/07/16 03:00 50 10/07/16 03:00 94 10/07/16 03:00 98.5 94 20 117/65 94 10/07/16 00:47 94 50 10/06/16 23:15 95 50 10/06/16 23:00 50 10/06/16 23:00 98.7 91 18 129/78 94 10/06/16 23:00 97 10/06/16 21:09 97 50 10/06/16 19:00 97 10/06/16 19:00 50 10/06/16 19:00 98.5 91 18 129/78 97 10/06/16 17:16 98 50 10/06/16 15:00 98.7 82 18 146/85 99 10/06/16 15:00 80 10/06/16 15:00 30 Intake & Output 10/07/16 10/07/16 07:00 19:00 Intake Total 1637 ml Output Total 1775 ml Balance -138 ml Intake IV Total 1257 ml Tube Feeding 380 ml Output Urine Total 1525 ml Chest Tube Drainage Total 250 ml # Bowel Movements 0 Physical Exam CONSTITUTIONAL/GENERAL: This is an adequately nourished patient, orally intubated on mechanical ventilation. TUBES/LINES/DRAINS: ETT, OG, right sided chest tube, Sandoval catheter, bilateral soft wrist restraints. SKIN: No jaundice, rashes, or lesions. Scatter large areas of ecchymoses on upper extremities. No wounds seen anteriorly. Skin temperature appropriate. Not diaphoretic. HEAD: Atraumatic. Normocephalic. EYES: Pupils equal and round and reactive, sluggish. Positive corneal reflex. No scleral icterus. No injection or drainage. ENT: Hearing grossly normal. Nose without bleeding or purulent drainage. Moist oral mucosa. NECK: Trachea midline. Supple. CARDIOVASCULAR: Regular rate and rhythm. No JVD. Peripheral pulses symmetric. RESPIRATORY/CHEST: Symmetric, unlabored respirations. Orally intubated on mechanical ventilation. Right sided inspiratory crackles, chest tube in place, small amount of serosanguineous output. GASTROINTESTINAL: Abdomen soft, round, nondistended. Bowel sounds present. GENITOURINARY: Without palpable bladder distension. Sandoval catheter in place. MUSCULOSKELETAL: Extremities without clubbing, cyanosis. Pitting edema to bilateral lower extremities, edema to upper extremities. NEUROLOGICAL: Off sedation. Opening eyes, not tracking. Not following commands. Withdraws bilaterally lower extremities to pain/stimuli. PSYCHIATRIC: Unable to assess secondary to clinical condition. . Diagnostic Tests Laboratory Laboratory Tests Test 10/04/16 10/04/16 10/04/16 10/04/16 14:45 14:55 16:33 16:40 Lactic Acid Level 5.9 mmol/L (0.4-2.0) Prothrombin Time 13.4 SEC (9.8-11.6) Prothromb Time International 1.2 RATIO Ratio Activated Partial 34.4 SEC Thromboplast Time (24.3-30.1) Sodium Level 146 MEQ/L (136-145) Potassium Level 4.7 MEQ/L (3.5-5.1) Chloride Level 112 MEQ/L (98-107) Carbon Dioxide Level 18.3 MEQ/L (21.0-32.0) Anion Gap 16 MEQ/L (5-15) Blood Urea Nitrogen 76 MG/DL (7-18) Creatinine 6.63 MG/DL (0.60-1.30) Estimat Glomerular Filtration 8 ML/MIN (>89) Rate Random Glucose 168 MG/DL (74-106) Calcium Level 8.0 MG/DL (8.5-10.1) Total Creatine Kinase 33 U/L (39-308) Troponin I 0.16 NG/ML (0.02-0.05) B-Type Natriuretic Peptide 313 PG/ML (0-100) Blood Type O POSITIVE Antibody Screen NEGATIVE Blood Gas Puncture Site RT RADIAL Blood Gas Patient Temperature 98.6 Blood Gas HCO3 14 mmol/L (22-26) Blood Gas Base Excess -11.5 mmol/L (-2-2) Blood Gas Oxygen Saturation 98 % (90-100) Arterial Blood pH 7.29 (7.380-7.420) Arterial Blood Partial 30 mmHg (38-42) Pressure CO2 Arterial Blood Partial 451 mmHG Pressure O2 (61-120) Arterial Blood Oxygen Content 12.2 Vol % (12.0-20.0) Arterial Blood 0.0 % (0-4) Carboxyhemoglobin Arterial Blood Methemoglobin 0.3 % (0-2) Blood Gas Hemoglobin 8.0 G/DL (12.0-16.0) Oxygen Delivery Device VENTILATOR Blood Gas Ventilator Setting AC,16,500,PEEP5 Blood Gas Inspired Oxygen 100 % White Blood Count 17.0 TH/MM3 (4.0-11.0) Red Blood Count 2.63 MIL/MM3 (4.50-5.90) Hemoglobin 8.2 GM/DL (13.0-17.0) Hematocrit 24.9 % (39.0-51.0) Mean Corpuscular Volume 94.4 FL (80.0-100.0) Mean Corpuscular Hemoglobin 31.3 PG (27.0-34.0) Mean Corpuscular Hemoglobin 33.1 % Concent (32.0-36.0) Red Cell Distribution Width 14.9 % (11.6-17.2) Platelet Count 99 TH/MM3 (150-450) Mean Platelet Volume 9.8 FL (7.0-11.0) Neutrophils (%) (Auto) 86.1 % (16.0-70.0) Lymphocytes (%) (Auto) 11.4 % (9.0-44.0) Monocytes (%) (Auto) 2.1 % (0.0-8.0) Eosinophils (%) (Auto) 0.3 % (0.0-4.0) Basophils (%) (Auto) 0.1 % (0.0-2.0) Neutrophils # (Auto) 14.6 TH/MM3 (1.8-7.7) Lymphocytes # (Auto) 1.9 TH/MM3 (1.0-4.8) Monocytes # (Auto) 0.4 TH/MM3 (0-0.9) Eosinophils # (Auto) 0.0 TH/MM3 (0-0.4) Basophils # (Auto) 0.0 TH/MM3 (0-0.2) CBC Comment AUTO DIFF Differential Total Cells 100 Counted Neutrophils % (Manual) 86 % (16-70) Band Neutrophils % 3 % (0-6) Lymphocytes % 9 % (9-44) Neutrophils # (Manual) 15.5 TH/MM3 (1.8-7.7) Metamyelocytes 2 % (0-1) Differential Comment FINAL DIFF MANUAL Platelet Estimate LOW (NORMAL) Platelet Morphology Comment NORMAL (NORMAL) Ovalocytes 1+ (NORMAL) Test 10/04/16 10/04/16 10/04/16 10/05/16 20:30 21:30 23:30 05:18 Sodium Level 144 MEQ/L 144 MEQ/L (136-145) (136-145) Potassium Level 4.4 MEQ/L 4.2 MEQ/L (3.5-5.1) (3.5-5.1) Chloride Level 112 MEQ/L 110 MEQ/L (98-107) (98-107) Carbon Dioxide Level 17.4 MEQ/L 19.3 MEQ/L (21.0-32.0) (21.0-32.0) Anion Gap 15 MEQ/L (5-15) 15 MEQ/L (5-15) Blood Urea Nitrogen 78 MG/DL (7-18) 77 MG/DL (7-18) Creatinine 5.98 MG/DL 5.68 MG/DL (0.60-1.30) (0.60-1.30) Estimat Glomerular Filtration 9 ML/MIN (>89) 10 ML/MIN (>89) Rate Random Glucose 222 MG/DL 200 MG/DL (74-106) (74-106) Lactic Acid Level 4.4 mmol/L (0.4-2.0) Calcium Level 7.6 MG/DL 7.6 MG/DL (8.5-10.1) (8.5-10.1) Troponin I 2.85 NG/ML (0.02-0.05) Blood Gas Puncture Site RT RADIAL Blood Gas Patient Temperature 98.6 Blood Gas HCO3 16 mmol/L (22-26) Blood Gas Base Excess -8.4 mmol/L (-2-2) Blood Gas Oxygen Saturation 96 % (90-100) Arterial Blood pH 7.35 (7.380-7.420) Arterial Blood Partial 30 mmHg (38-42) Pressure CO2 Arterial Blood Partial 149 mmHg Pressure O2 (61-120) Arterial Blood Oxygen Content 12.0 Vol % (12.0-20.0) Arterial Blood 1.2 % (0-4) Carboxyhemoglobin Arterial Blood Methemoglobin 1.5 % (0-2) Blood Gas Hemoglobin 8.7 G/DL (12.0-16.0) Oxygen Delivery Device VENTILATOR Blood Gas Ventilator Setting 500/18/PEEP 5 Blood Gas Inspired Oxygen 40 % White Blood Count 25.0 TH/MM3 14.5 TH/MM3 (4.0-11.0) (4.0-11.0) Red Blood Count 3.13 MIL/MM3 2.97 MIL/MM3 (4.50-5.90) (4.50-5.90) Hemoglobin 10.0 GM/DL 9.3 GM/DL (13.0-17.0) (13.0-17.0) Hematocrit 29.2 % 27.9 % (39.0-51.0) (39.0-51.0) Mean Corpuscular Volume 93.4 FL 94.0 FL (80.0-100.0) (80.0-100.0) Mean Corpuscular Hemoglobin 31.8 PG 31.2 PG (27.0-34.0) (27.0-34.0) Mean Corpuscular Hemoglobin 34.1 % 33.2 % Concent (32.0-36.0) (32.0-36.0) Red Cell Distribution Width 14.6 % 14.6 % (11.6-17.2) (11.6-17.2) Platelet Count 104 TH/MM3 83 TH/MM3 (150-450) (150-450) Mean Platelet Volume 9.7 FL 10.0 FL (7.0-11.0) (7.0-11.0) Prothrombin Time 13.0 SEC (9.8-11.6) Prothromb Time International 1.2 RATIO Ratio Activated Partial 32.7 SEC 67.7 SEC Thromboplast Time (24.3-30.1) (24.3-30.1) Nasal Screen MRSA (PCR) MRSA NOT DETECTED (NOT DETECT) Neutrophils (%) (Auto) 91.3 % (16.0-70.0) Lymphocytes (%) (Auto) 5.0 % (9.0-44.0) Monocytes (%) (Auto) 3.5 % (0.0-8.0) Eosinophils (%) (Auto) 0.0 % (0.0-4.0) Basophils (%) (Auto) 0.2 % (0.0-2.0) Neutrophils # (Auto) 13.2 TH/MM3 (1.8-7.7) Lymphocytes # (Auto) 0.7 TH/MM3 (1.0-4.8) Monocytes # (Auto) 0.5 TH/MM3 (0-0.9) Eosinophils # (Auto) 0.0 TH/MM3 (0-0.4) Basophils # (Auto) 0.0 TH/MM3 (0-0.2) CBC Comment AUTO DIFF Differential Comment AUTO DIFF CONFIRMED Platelet Estimate LOW (NORMAL) Platelet Morphology Comment NORMAL (NORMAL) Total Bilirubin 1.0 MG/DL (0.2-1.0) Aspartate Amino Transf 50 U/L (15-37) (AST/SGOT) Alanine Aminotransferase 29 U/L (12-78) (ALT/SGPT) Alkaline Phosphatase 138 U/L (45-117) Total Protein 5.7 GM/DL (6.4-8.2) Albumin 2.3 GM/DL (3.4-5.0) Test 8/9/17 810/05/16 10/06/16 08:15 15:47 18:51 04:36 Lactic Acid Level 2.1 mmol/L (0.4-2.0) Activated Partial 102.4 SEC 53.3 SEC 51.4 SEC Thromboplast Time (24.3-30.1) (24.3-30.1) (24.3-30.1) Test 10/06/16 10/07/16 06:31 04:42 White Blood Count 15.8 TH/MM3 14.1 TH/MM3 (4.0-11.0) (4.0-11.0) Red Blood Count 2.73 MIL/MM3 2.58 MIL/MM3 (4.50-5.90) (4.50-5.90) Hemoglobin 8.6 GM/DL 8.0 GM/DL (13.0-17.0) (13.0-17.0) Hematocrit 24.6 % 23.0 % (39.0-51.0) (39.0-51.0) Mean Corpuscular Volume 90.1 FL 89.4 FL (80.0-100.0) (80.0-100.0) Mean Corpuscular Hemoglobin 31.5 PG 30.9 PG (27.0-34.0) (27.0-34.0) Mean Corpuscular Hemoglobin 35.0 % 34.6 % Concent (32.0-36.0) (32.0-36.0) Red Cell Distribution Width 14.5 % 14.3 % (11.6-17.2) (11.6-17.2) Platelet Count 78 TH/MM3 85 TH/MM3 (150-450) (150-450) Mean Platelet Volume 10.6 FL 10.5 FL (7.0-11.0) (7.0-11.0) Neutrophils (%) (Auto) 87.7 % 89.8 % (16.0-70.0) (16.0-70.0) Lymphocytes (%) (Auto) 6.8 % 6.4 % (9.0-44.0) (9.0-44.0) Monocytes (%) (Auto) 4.9 % (0.0-8.0) 3.7 % (0.0-8.0) Eosinophils (%) (Auto) 0.2 % (0.0-4.0) 0.0 % (0.0-4.0) Basophils (%) (Auto) 0.4 % (0.0-2.0) 0.1 % (0.0-2.0) Neutrophils # (Auto) 13.8 TH/MM3 12.6 TH/MM3 (1.8-7.7) (1.8-7.7) Lymphocytes # (Auto) 1.1 TH/MM3 0.9 TH/MM3 (1.0-4.8) (1.0-4.8) Monocytes # (Auto) 0.8 TH/MM3 0.5 TH/MM3 (0-0.9) (0-0.9) Eosinophils # (Auto) 0.0 TH/MM3 0.0 TH/MM3 (0-0.4) (0-0.4) Basophils # (Auto) 0.1 TH/MM3 0.0 TH/MM3 (0-0.2) (0-0.2) CBC Comment AUTO DIFF DIFF FINAL Differential Total Cells 100 Counted Neutrophils % (Manual) 77 % (16-70) Band Neutrophils % 13 % (0-6) Lymphocytes % 3 % (9-44) Monocytes % 7 % (0-8) Neutrophils # (Manual) 14.2 TH/MM3 (1.8-7.7) Differential Comment FINAL DIFF MANUAL Platelet Estimate LOW (NORMAL) Platelet Morphology Comment NORMAL (NORMAL) Ovalocytes 1+ (NORMAL) Keratocytes OCC (NORMAL) Sodium Level 142 MEQ/L 144 MEQ/L (136-145) (136-145) Potassium Level 3.3 MEQ/L 2.3 MEQ/L (3.5-5.1) (3.5-5.1) Chloride Level 104 MEQ/L 99 MEQ/L (98-107) (98-107) Carbon Dioxide Level 27.3 MEQ/L 36.7 MEQ/L (21.0-32.0) (21.0-32.0) Anion Gap 11 MEQ/L (5-15) 8 MEQ/L (5-15) Blood Urea Nitrogen 72 MG/DL (7-18) 55 MG/DL (7-18) Creatinine 3.76 MG/DL 2.28 MG/DL (0.60-1.30) (0.60-1.30) Estimat Glomerular Filtration 16 ML/MIN (>89) 28 ML/MIN (>89) Rate Random Glucose 118 MG/DL 154 MG/DL (74-106) (74-106) Calcium Level 7.0 MG/DL 6.4 MG/DL (8.5-10.1) (8.5-10.1) Protein Corrected Calcium 7.8 MG/DL 7.5 MG/DL (8.5-10.1) (8.5-10.1) Total Protein 5.5 GM/DL 4.8 GM/DL (6.4-8.2) (6.4-8.2) Activated Partial 49.9 SEC Thromboplast Time (24.3-30.1) Total Bilirubin 0.5 MG/DL (0.2-1.0) Aspartate Amino Transf 35 U/L (15-37) (AST/SGOT) Alanine Aminotransferase 19 U/L (12-78) (ALT/SGPT) Alkaline Phosphatase 84 U/L (45-117) Albumin 1.7 GM/DL (3.4-5.0) Phenytoin (Dilantin) Level 7.6 MCG/ML (10.0-20.0) Result Diagram: 10/07/1644110/07/16 0442 Microbiology Microbiology Date/Time Procedure Status Source Growth 10/04/16 14:50 Aerobic Blood Culture - Preliminary Resulted Blood Peripheral NO GROWTH IN 3 DAYS 10/04/16 14:50 Anaerobic Blood Culture - Preliminary Resulted Blood Peripheral NO GROWTH IN 3 DAYS 10/04/16 14:55 Aerobic Blood Culture - Preliminary Resulted Blood Peripheral NO GROWTH IN 3 DAYS 10/04/16 14:55 Anaerobic Blood Culture - Preliminary Resulted Blood Peripheral NO GROWTH IN 3 DAYS Imaging Last 48 hours Impressions Chest X-Ray 10/06/16 0000 Signed Impressions: Service Date/Time: September 07:35 - CONCLUSION: Right thoracostomy tube placement with resolution of pneumothorax Rubén Sheriff MD Chest X-Ray 10/06/16 0000 Signed Impressions: Service Date/Time: September 05:56 - CONCLUSION: Large right-sided pneumothorax with extensive subcutaneous emphysema right chest, pigtail catheter in the subcutaneous tissues. Matthew Juarez MD Procedures * 10/04/16 -endotracheal intubation * 10/04/16 -right-sided chest tube placement * 10/06/16 -right-sided chest tube placement . Assessment and Plan Disease Oriented Problem List: (1) Cardiac arrest (2) Encephalopathy (3) Acute kidney injury (4) Pneumothorax, right (5) Metabolic acidosis (6) DVT, lower extremity (7) HTN (hypertension) Symptom Scale: (1) Shortness of breath 0-10 Scale: Unable to quantify Comment: Remains orally intubated on mechanical ventilation. Pertinent Non-Medical Issues Psychosocial: Patient originally from [place]. Moved to [place] 26 years ago. , has 5 children. 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 No service. Spiritual: Christianity corby. Legal: No advance directives completed. Ethical issues impacting care: No ethical issues identified. . Important Contacts Candida Cutler . Prognosis Mr. Cutler is an 81-year-old male with medical history significant for prior NV , ischemic CVA, sickle cell disease, hypertension, prostate and skin cancer. Patient arrived to the ED via EMS on 10/04/16 status post PEA arrest. Clinical course further complicated by persistent encephalopathy, likely anoxic, acute kidney injury and respiratory failure. Patient's overall prognosis is very poor for a meaningful recovery. Code Status: No Code Plan * CODE STATUS: No code. DNR. * HEALTHCARE DECISION-MAKING: Patient incapacitated for medical decision-making secondary to clinical condition, encephalopathic on vent support. No advance directives completed. In the absence of AD and as per [place] law, healthcare proxy decision making falls to patient's , Candida Cutler. * GOALS OF CARE: After further discussion with neurology Dr. Godwin and while taking into consideration Dr. Fong's recommendations, family has elected to transition patient to comfort-directed care/compassionate withdrawal life support given poor overall prognosis for a meaningful recovery and patient' s known wishes. Patient's verbalized that patient's quality of life is her family's main priority. Family reports that patient has been very vocal in the past against long-term placement/dependent on others for care, tracheostomy or PEG tube. Family feels that if patient is unable to return to his cognitive and physical baseline and independently participate in activities of daily living, patient would favor withdrawal of life support. * SYMPTOMS: Comfort care order set entered. * Exhibits B&C sign, anticipatory guidance provided to family. Discussed hospice referral tomorrow morning should patient survives the night. Family receptive to this. * public health informatician present for last rites. * Patient's discussed case at length with , patient known to him. * Family verbalized much appreciation for the care provided to patient. Ongoing emotional support and active listening provided. * Case discussed with Dr. Zhou, Dr Downing and bedside RN Susana. * Palliative care contact information has been provided to patient's family. . Time Spent Time Periods: Bedside family meetings as follow: 11:35 to 12:07, 15:20 to 15:41 and 14:33 to 14:55. Total Floor Time (mins): 92 (Total time to include review and summarization of available medical records, physical exam, family meetings x 75 mins as stated above, and case discussions with Dr. Downing, Dr. Zhou and bedside RN Susana. ) >50% Counseling/Coord of Care: Yes Attestation To help prompt me to consider important information that might be impacting today's encounter and assessment, information from prior notes written by myself or my colleagues may have been "brought forward" into today's note. My signature on this note, however, is an attestation that I personally performed the exam, history, and/or decision-making noted today, and, unless otherwise indicated, the interactions with patient, family, and staff as well as the review of records all occurred today. I also attest that the listed assessment and stated plan reflect my best clinical judgment today based on the combination of historical information, prior notes, and today's exam/ interactions. When time spent is documented, it refers only to time spent today by the signer, or if indicated, combined time spent today by collaborating physician/nurse practitioner. Lou Short Oct 07, 2016 13:59
--- NOTE | 2016-10-07 16:22 | HHI.NPPN ---
Subjective History of Present Illness 81-year-old male with a past medical history of prostate cancer, history of cerebrovascular accident, hypertension, hyperlipidemia, mild chronic kidney disease, history of melanoma of the skin, who was brought to the hospital post cardiac arrest. I was called to see the patient because of a very high BUN and creatinine and high potassium level. Additional Remarks Patient remain intubated and remain unresponsive, clinically same. Objective Data Data 10/06/16 10/07/16 19:00 07:00 Intake Total 3970 ml 1637 ml Output Total 1245 ml 1775 ml Balance 2725 ml -138 ml Intake IV Total 3940 ml 1257 ml Tube Feeding 30 ml 380 ml Output Urine Total 1220 ml 1525 ml Gastric Drainage Total 25 ml Chest Tube Drainage Total 0 ml 250 ml # Bowel Movements 0 0 Vital Signs Date Time Temp Pulse Resp B/P Pulse Ox O2 Delivery O2 Flow Rate FiO2 10/07/16 15:48 69 18 122/67 96 10/07/16 15:15 40 10/07/16 15:14 81 10/07/16 13:42 95 40 10/07/16 11:41 40 10/07/16 11:40 92 10/07/16 11:33 100.8 80 22 114/54 95 10/07/16 10:57 90 10/07/16 09:44 45 10/07/16 08:26 97 45 10/07/16 08:10 100.5 87 18 114/58 97 10/07/16 08:10 88 10/07/16 08:10 50 10/07/16 03:37 94 50 10/07/16 03:00 50 10/07/16 03:00 94 10/07/16 03:00 98.5 94 20 117/65 94 10/07/16 00:47 94 50 10/06/16 23:15 95 50 10/06/16 23:00 50 10/06/16 23:00 98.7 91 18 129/78 94 10/06/16 23:00 97 10/06/16 21:09 97 50 10/06/16 19:00 97 10/06/16 19:00 50 10/06/16 19:00 98.5 91 18 129/78 97 10/06/16 17:16 98 50 -: 10/07/16 0442 10/07/16 0442 Physical Exam General Appearance Remarks Intubated and off sedation. Eyes Eye Exam: Pupils Equal Throat Throat Exam: Oral Mucosa [place] & Moist Neck Neck Exam: Neck Supple Pulmonary Resp Exam: No Distress, Rhonchi, Decreased Bases, Diminished Breath Sounds, Poor Inspiratory Effort Cardiology CV Exam: Regular, Normal Sinus Rhythm Gastrointestinal/Abdomen GI Exam: Soft, Non-Tender, Bowel Sounds Present Extremeties Extremities Exam: Trace Edema Neurologic Neuro Exam: Obtunded, Unresponsive Assessment/Plan Assessment Summary: INDU/Acute Renal Failure Electrolyte Assessment: Hyperkalemia, Metabolic Acidosis Problem List: (1) Encephalopathy (2) HTN (hypertension) (3) Chronic ischemic multifocal anterior circulation stroke (4) Metabolic acidosis (5) Hyperkalemia (6) Acute kidney injury Plan Patient was seen by urology, has ureteral dilatation and Sandoval's inserted at bed side. Has almost 2 liters of dark urine came out. BP is stable, off sedation. Urine out put is good. Creatinine continue to improve. K is low. IVF stopped. Family at bed side. They discussed with Neurology and decided to withdraw all the treatment. Problem Qualifiers (1) HTN (hypertension): Qualified Code: I10 - Essential hypertension Steven Almaraz MD Oct 07, 2016 16:22
[2016-10-07] MEDS ORDERED: HYDROmorphone HCL PF 2 MG/ML VIAL IV ONE (16:45)
[2016-10-07] MEDS ORDERED: LORazepam 2 MG/ML VIAL IV ONE ×2 (16:45→17:00)
[2016-10-07] MEDS ORDERED: HYDROmorphone HCL PF 1 MG/ML VIAL IV ONE ×2 (16:45→17:00)
[2016-10-07] MEDS ORDERED: HYOSCYAMINE 0.5 MG/ML AMP IV ONE (16:45)
[2016-10-07] MEDS ORDERED: LORazepam 2 MG/ML VIAL IV PRN ×2 (17:15)
[2016-10-07] MEDS ORDERED: HYOSCYAMINE 0.5 MG/ML AMP IV PRN (17:15)
[2016-10-07] MEDS ORDERED: FUROSEMIDE 20 MG/2 ML VIAL IV PRN (17:15)
[2016-10-07] MEDS ORDERED: LORazepam 2 MG/ML VIAL IVS PRN (17:15)
[2016-10-07] MEDS ORDERED: HYDROmorphone HCL PF 1 MG/ML VIAL IV PRN ×2 (17:15)
[2016-10-07] MEDS ORDERED: ACETAMINOPHEN 650 MG SUPP RECTAL PRN (17:15)
[2016-10-07] MEDS ORDERED: BISACODYL 10 MG SUPP RECTAL PRN (17:15)
[2016-10-07] MEDS ORDERED: LORazepam 2 MG/ML VIAL IV SCH (20:00)
[2016-10-07] MEDS ORDERED: HYDROmorphone HCL PF 1 MG/ML VIAL IV SCH (20:00)
--- NOTE | 2016-10-07 21:14 | MG ---
cc: STEPHON SHEN M.D. Sex: M REQUESTING PHYSICIAN: Dr. Fong DATE OF STUDY: 10/07/2016 INDICATIONS: An EEG was obtained on this 81 year-old patient being evaluated for decreased responsiveness. The patient is intubated, no sedation. MEDICATIONS: Keppra Dilantin DESCRIPTION: The EEG shows intermittent bilateral sharp discharges, some triphasic appearance. There is patent delta rhythms bilaterally and there is a lack of alpha activity. There are beta rhythms. Occasionally there is muscle artifact when the patient seems to be more responsive/better level of consciousness. Throughout the study there is deep tactile stimulation actually without much change in the background EEG. Photic stimulation also unremarkable. INTERPRETATION Abnormal EEG because of diffuse slowing with bilateral sharp discharge. The sharp discharge at times is triphasic and one is unable to clearly separate epileptiform from metabolic type of discharge. The bilateral slowing is compatible with a metabolic or some bihemispheric structural dysfunction. No ictal pattern. Stephon Shen MD [facility] /7:59 PM /9:05 PM
== END 2016-10-07 18:03 | disposition expired | DRG 208 ==
LOC: NEPC 15:10 → NEDA 17:11 → HCVR 18:06
PROVIDERS: ADMIT Internal Medicine Critical Care Medicine; ATTEND Internal Medicine Critical Care Medicine
PROC: 5A1945Z Respiratory Ventilation, 24-96 Consecutive Hours (ICD-10-PCS; principal; 2016-10-04)
PROC: 0W9930Z Drainage of Right Pleural Cavity with Drainage Device, Percutaneous Approach (ICD-10-PCS; 2016-10-04)
PROC: 0T7D7ZZ Dilation of Urethra, Via Natural or Artificial Opening (ICD-10-PCS; 2016-10-05)
PROC: 0T9B70Z Drainage of Bladder with Drainage Device, Via Natural or Artificial Opening (ICD-10-PCS; 2016-10-05)
PROC: 0W9930Z Drainage of Right Pleural Cavity with Drainage Device, Percutaneous Approach (ICD-10-PCS; 2016-10-06)
DX: I26.99 Other pulmonary embolism without acute cor pulmonale (principal); J96.01 Acute respiratory failure with hypoxia; I46.9 Cardiac arrest, cause unspecified; N17.0 Acute kidney failure with tubular necrosis; R57.9 Shock, unspecified; S27.0XXA Traumatic pneumothorax, initial encounter; G93.1 Anoxic brain damage, not elsewhere classified; S22.41XA Multiple fractures of ribs, right side, initial encounter for closed fracture; E87.2 Acidosis; I82.443 Acute embolism and thrombosis of tibial vein, bilateral; I82.412 Acute embolism and thrombosis of left femoral vein; N13.30 Unspecified hydronephrosis; T79.7XXA Traumatic subcutaneous emphysema, initial encounter; C31.9 Malignant neoplasm of accessory sinus, unspecified; G47.30 Sleep apnea, unspecified; R00.0 Tachycardia, unspecified; E78.5 Hyperlipidemia, unspecified; I25.10 Atherosclerotic heart disease of native coronary artery without angina pectoris; D57.1 Sickle-cell disease without crisis; N35.9 Urethral stricture, unspecified; E87.5 Hyperkalemia; E11.22 Type 2 diabetes mellitus with diabetic chronic kidney disease; I12.9 Hypertensive chronic kidney disease with stage 1 through stage 4 chronic kidney disease, or unspecified chronic kidney disease; I27.2 Other secondary pulmonary hypertension; I45.10 Unspecified right bundle-branch block; I48.91 Unspecified atrial fibrillation; N18.2 Chronic kidney disease, stage 2 (mild); N32.0 Bladder-neck obstruction; Z51.5 Encounter for palliative care; Z66 Do not resuscitate; Z86.73 Personal history of transient ischemic attack (TIA), and cerebral infarction without residual deficits; I25.2 Old myocardial infarction; Z92.21 Personal history of antineoplastic chemotherapy; Z92.3 Personal history of irradiation; Z85.46 Personal history of malignant neoplasm of prostate; Z85.820 Personal history of malignant melanoma of skin
CPT/HCPCS: 36600; 70450; 71010; 71250; 74176; 80048; 80053; 80185; 82550; 82805; 82948; 83605; 83880; 84155; 84484; 85007; 85025; 85027; 85610; 85730; 86850; 86900; 86901; 87040; 87641; 93005; 93306; 93970; 94002; 94003; 94640; 94664; 95819; 96374; C9113; J0171; J0461; J1170; J1644; J1720; J1953; J1980; J2060; J3010; J3480; J7030; J7060; Q2009